=== PATIENT | female | born 1990 | race Caucasian/White ===

== ENCOUNTER 2017-11-07 16:43 | Emergency (ER) | payer OTHER, SELFPAY ==
[2017-11-07 16:45] VITALS: BP 131/90; PULSE 76; RESP 20; TEMP 36.5; O2SAT 99; BMI 24.4
--- NOTE | 2017-11-07 16:56 | ED_ITS ---
HPI - Extremity Injury (Upper) General Chief Complaint: Extremity Injury, Upper Stated Complaint: MIDDLE RIGHT FINGER INJURY Time Seen by Provider: 11/07/17 16:51 History of Present Illness HPI narrative: 27F no pmhx at work injured R 3rd digit in shelf, tweaking the end of it. Has full ROM, but feels a clicking and pain when moving. No numbness. Related Data Home Medications Medication Instructions Recorded Confirmed Supplements And Vitamins--Multi 1 ea PO DIRECTED 11/07/17 11/07/17 Allergies Allergy/AdvReac Type Severity Reaction Status Date / Time No Known Drug Allergies Allergy Verified 11/07/17 16:48 Review of Systems Constitutional Denies chills, Denies fever(s), Denies lethargy and Denies weakness Cardiovascular Denies chest pain, Denies irregular heart rhythm, Denies lightheadedness, Denies palpitations, Denies dyspnea, Denies dyspnea on exertion and Denies orthopnea Respiratory Denies cough, Denies dyspnea, Denies dyspnea on exertion and Denies wheezing Genitourinary Denies hematuria, Denies flank pain, Denies urinary incontinence and Denies urinary urgency Musculoskeletal Reports as per HPI Integumentary/Breasts Denies pruritus, Denies erythema, Denies rash and Denies wounds Neurologic Denies weakness Endocrine Denies palpitations Allergic/Immunologic Denies wheezing PFSH Surgical History Status post rhinoplasty Social History Smoking Status: Never smoker Exam Initial Vital Signs Initial Vital Signs: Vital Signs Temperature 97.7 F 11/07/17 16:45 Pulse Rate 76 11/07/17 16:45 Respiratory Rate 20 11/07/17 16:45 Blood Pressure 131/90 H 11/07/17 16:45 Pulse Oximetry 99 11/07/17 16:45 Const General: cooperative and well developed Nutritional Appearance: well nourished Orientation: alert, awake, oriented x3 and not confused Chest Chest: normal inspection of the chest Resp Effort & Inspection: normal respiratory effort, able to speak in complete sentences, no respiratory distress and no use of accessory muscles Auscultation: clear to auscultation bilaterally, no rales, no rhonchi and no wheezes Extrem General: other (Very minor swelling to DIP of 3rd R hand digit. Minor tenderness. No crepitus felt. Full ROM, normal sensation. ) Course Orders Ordered: ED Orders 05/25/18 16:54 XR hand RT 2V Stat Discontinued Medications Ibuprofen (Advil) 600 mg PO NOW ONE Stop: 11/07/17 17:00 Vital Signs - 8 hr 11/07/17 16:45 Temperature 97.7 F Pulse Rate 76 Respiratory Rate 20 Blood Pressure 131/90 H Pulse Oximetry 99 MDM - Extremity Injury (Upper) Imaging Data Hand XR: Radiologist's impression: Patient: Darby English MMR#: [id number] : 1990Acct:[id number] Age/Sex: 27 / FDate of Service: 11/07/17 Loc: ED Accession Number: [id number] Procedure: XR hand RT 2V Ordering Provider: Oswaldo Negrete M.D. PROCEDURE: XR HAND RT 2V INDICATIONS: hand injury TECHNIQUE: 2 views of the hand(s) acquired. COMPARISON: None. FINDINGS: Bones: No fractures or dislocations. Carpal bones are normally aligned. No suspicious bony lesions. Soft tissues: No suspicious soft tissue calcifications. IMPRESSION: No trauma found. Dictated by: Collins Huddleston M.D. on 11/07/2017 at 17:15 Approved by: Collins Huddleston M.D. on 11/07/2017 at 17:16 [facility] Narrative Medical decision making narrative: XR negative for fracture or dislocation. Finger moustapha taped. Stable for discharge. Discharge Plan Departure Patient Disposition: Home, Self-Care Clinical Impression: Finger sprain Instructions: DI for Finger Sprain Activity Restrictions/Additional Instructions: May resume normal activities as tolerated. Prescriptions: No Action Supplements And Vitamins--Multi 1 ea PO DIRECTED RF: 0 Referrals: Aldo Sepulveda MD [Primary Care Provider] - Stand Alone Forms: Work/School Restrictions
== END 2017-11-07 17:42 | disposition home or self-care (01) ==
PROVIDERS: Emergency Provider Student in an Organized Health Care Education/Training Program; PCP Family Medicine
DX: S63.612A Unspecified sprain of right middle finger, initial encounter (principal); X58.XXXA Exposure to other specified factors, initial encounter; Y99.0 Civilian activity done for income or pay
CPT/HCPCS: 73120; 99282; 99283

== ENCOUNTER → 2019-08-02 15:02 | Outpatient (CLI) | payer OTHER, MEDICAID, SELFPAY ==
[2019-08-02 17:35] LABS: Add Manual Diff / Slide Review NO; Basophils Absolute Auto 0 /uL (0-100); Basophils Percent Auto 0.5 % (0-2); Eosinophils Absolute Auto 100 /uL (0-450); Eosinophils Percent Auto 1.6 % (2-4); Hematocrit 40.9 % (36-46); Hemoglobin 13.7 g/dL (12.0-16.0); Lymphocytes Absolute Auto 2200 /uL (1100-4500); Lymphocytes Percent Auto 36.4 % (25-40); Mean Corpuscular HGB Conc 33.6 % (30-36); Mean Corpuscular Hemoglobin 30.6 PG (26-34); Mean Corpuscular Volume 91.1 fL (80-100); Monocytes Absolute Auto 300 /uL (0-900); Monocytes Percent Auto 5.7 % (3-14); Neutrophils Absolute Auto 3300 /uL (1500-7000); Neutrophils Percent Auto 55.8 % (50-75); Platelet Count 229 X10^3/uL (150-400); Red Blood Cell Count 4.49 X10^6/uL (4.0-5.2); Red Cell Distribution Width 12.3 % (11.6-14.8); White Blood Cell Count 5.9 X10^3/uL (4.5-11.0)
[2019-08-02 18:11] LABS: Alanine Aminotransferase 21 IU/L (<35); Albumin 4.8 g/dL (3.5-5.0); Albumin Globulin Ratio 1.4 (1.0-2.8); Alkaline Phosphatase 136 U/L (38-126); Aspartate Aminotransferase 32 IU/L (14-36); BUN Creatinine Ratio 16.7 (6-22); Bilirubin Total 0.3 mg/dL (0.2-1.3); Blood Urea Nitrogen 10 mg/dL (7-17); Calcium 9.5 mg/dL (8.4-10.2); Carbon Dioxide 28 mmol/L (22-32); Chloride 102 mmol/L (98-107); Cholesterol 167 mg/dL (140-199); Estimated Glomerular Filt Rate > 60.0 mL/min (>60); Globulin 3.4 g/dL (1.7-4.1); Glucose 81 mg/dL (70-100); HDL Cholesterol 57 mg/dL (40-60); HEMOLYSIS < 15 (0-50); LDL Cholesterol Calculated 81 mg/dL (<100); Potassium 4.5 mmol/L (3.4-5.1); Sodium 140 mmol/L (137-145); Total Protein 8.2 g/dL (6.3-8.2); Triglycerides 145 mg/dL (35-150)
[2019-08-02 18:45] LABS: Thyroid Stimulating Hormone 1.78 uIU/mL (0.47-4.68)
== END ==
PROVIDERS: PCP Family Medicine; Referring Provider Family Medicine; Visit Provider Family Medicine
DX: Z00.00 Encounter for general adult medical examination without abnormal findings (principal)
CPT/HCPCS: 36415; 80053; 80061; 83036; 84443; 85025

== ENCOUNTER → 2020-03-02 08:23 | Outpatient (CLI) | payer OTHER, MEDICAID, SELFPAY ==
[2020-03-03 20:01] LABS: COVID19 Sendout Not Detected (Not Detect)
== END ==
PROVIDERS: PCP Family Medicine; Visit Provider Physician Assistant
DX: Z11.59 Encounter for screening for other viral diseases (principal)
CPT/HCPCS: 87635

== ENCOUNTER → 2020-05-08 13:13 | Outpatient (CLI) | payer OTHER, MEDICAID, SELFPAY ==
[2020-05-08 14:30] LABS: COVID19 -Nasal RAPID Negative (Negative)
== END ==
PROVIDERS: PCP Family Medicine; Visit Provider Physician Assistant
DX: Z11.59 Encounter for screening for other viral diseases (principal)
CPT/HCPCS: 87635

== ENCOUNTER → 2022-02-13 08:15 | Outpatient (CLI) | payer OTHER, MEDICAID, SELFPAY ==
--- NOTE | 2022-02-13 | DI.RAD.S_ITS ---
PROCEDURE: XR HAND RT MIN 3V INDICATIONS: pain at 3rd PIP TECHNIQUE: 3 views of the hand(s) acquired. COMPARISON: [facility], CR, XR HAND RT 2V, 11/07/2017, 17:07. FINDINGS: Bones: No fractures or dislocations. Carpal bones are normally aligned. No suspicious bony lesions. Soft tissues: No suspicious soft tissue calcifications. IMPRESSION: No visualized acute fracture or dislocation. However, if clinical concern and/or pain persist, short interval imaging followup in 7-10 days is recommended, as occult injury cannot be definitively excluded. Dictated by: Lizbeth Millan M.D. on 02/13/2022 at 17:17 Approved by: Lizbeth Millan M.D. on 02/13/2022 at 17:18
--- NOTE | 2022-02-13 | DI.US.S_ITS ---
PROCEDURE: US PELVIC COMPLETE INDICATIONS: Right lower quadrant pain TECHNIQUE: Real-time scanning was performed of the pelvic organs, with image documentation. Additional endovaginal scanning was necessary due to incomplete visualization of the adnexal and endometrial structures by transabdominal scanning. COMPARISON: [facility], , PELVIC COMPLETE, 08/25/2017, 18:00. FINDINGS: Uterus: Uterus is anteverted and normal in size at 7.6 x 4 x 3.4 cm. The myometrium is homogeneous. The endometrium measures 3 mm combined thickness. Incidental note is made of nabothian cysts. Ovaries: The right ovary measures 3 x 2 x 2 cm. The left ovary measures 2.6 x 1.7 x 1.3 cm. The ovaries have a normal sonographic appearance. Less than 12 follicles can be seen involving each ovary. No adnexal masses are seen. Other: No pathologic free abdominal or pelvic fluid. IMPRESSION: No imaging explanation is found for this patient's presenting symptoms. We strive to produce accurate, complete, and clear reports of imaging services. To assist us in improving patient care, this report was composed using standard report templates and voice recognition software. Therefore, it may contain abnormal punctuation, insertions and/or omissions. Occasional wrong-word or sound-alike substitutions may occur. Though we review the report and make efforts to correct it, we do recommend that the report be read carefully in proper context to recognize any text inaccuracies. Dictated by: Lior Stephenson M.D. on 02/13/2022 at 12:34 Approved by: Lior Stephenson M.D. on 02/13/2022 at 12:35
== END ==
PROVIDERS: PCP Family Medicine; Referring Provider Physician Assistant; Visit Provider Physician Assistant
DX: N88.8 Other specified noninflammatory disorders of cervix uteri (principal); R10.31 Right lower quadrant pain; M79.644 Pain in right finger(s)
CPT/HCPCS: 73130; 76830; 76856

== ENCOUNTER → 2022-02-25 11:42 | Outpatient (CLI) | payer OTHER, SELFPAY ==
--- NOTE | 2022-02-25 11:43 | DI.US.S_ITS ---
PROCEDURE: US ABDOMEN LIMITED INDICATIONS: RUQ RLQ and epigastric pain TECHNIQUE: Real-time focused scanning was performed of the abdomen, with image documentation. COMPARISON: None. FINDINGS: The liver demonstrates mildly size. The liver demonstrates generalized slightly increased echogenicity. This decreases ultrasound sensitivity for detection of hepatic masses. No findings of gallstones or sludge are seen. The gallbladder wall is not thickened, measuring 3 mm or less. No specific pericholecystic fluid is seen. The sonographic Finley sign is negative. There is no biliary dilatation, the common bile duct measures 6-7 mm. No significant pancreatic abnormality is seen on these images. The right kidney demonstrates mild pelviectasis and hydroureter, which resolves postvoid. There is potential visualization of the distal right ureter postvoid. IMPRESSION: The gallbladder demonstrates a normal sonographic appearance. No biliary dilatation is seen. Right kidney pelviectasis and hydroureter can be seen, which resolves postvoid. Potential visualization of the distal right ureter on postvoid imaging. Please consider reflux. Mildly enlarged, fatty liver. Dictated by: Lior Stephenson M.D. on 02/25/2022 at 11:26 Approved by: Lior Stephenson M.D. on 02/25/2022 at 11:28
== END ==
PROVIDERS: PCP Family Medicine; Referring Provider Nurse Practitioner; Visit Provider Nurse Practitioner
DX: R10.11 Right upper quadrant pain (principal); R10.31 Right lower quadrant pain; R10.13 Epigastric pain; K76.0 Fatty (change of) liver, not elsewhere classified; R16.0 Hepatomegaly, not elsewhere classified
CPT/HCPCS: 76705

== ENCOUNTER → 2022-04-10 09:15 | Outpatient (CLI) | payer OTHER, SELFPAY ==
[2022-04-10 10:13] LABS: COVID19 -Nasal RAPID Negative (Negative)
== END ==
PROVIDERS: PCP Nurse Practitioner; Visit Provider Surgery
DX: Z20.822 Contact with and (suspected) exposure to COVID-19 (principal); Z01.812 Encounter for preprocedural laboratory examination
CPT/HCPCS: 87635; C9803

== ENCOUNTER 2022-04-11 10:29 | Day surgery (SDC) | payer OTHER, SELFPAY ==
[2022-04-11] VITALS (7 sets, daily range): BP systolic 105–115; BP diastolic 62–78; PULSE 66–78; RESP 16; TEMP 36.2–36.8; O2SAT 98–100; BMI 25.0
--- NOTE | 2022-04-11 | PATH_ITS ---
[facility] Accession Number: [id number] . 01 Material submitted: . colon - DESCENDING COLON POLYP . 01 Diagnosis: Descending Colon, Polyp, Biopsy: Tubular adenoma. MRV 04/16/2022 1246 Local . 01 Electronically signed: . Carmen Madsen MD, Pathologist NPI- [id number] . 01 Gross description: . DESCENDING COLON POLYP: Received in formalin is 1 fragment(s) of sahni, soft tissue measuring 0.3 x 0.2 x 0.2 cm submitted entirely in 1 cassette(s) /NICOLE 04/15/2022 1902 Local . 01 Pathologist provided ICD-10: D12.4 . 01 CPT . 773119 Specimen Comment: A courtesy copy of this report has been sent to [phone] Performed at: 01 [facility] [address] [place] [address] [id number] MD Blake Peters MD Phone: [phone]
[2022-04-11] MEDS: LACTATED RINGERS 1,000 ML 42 ML IV (11:13)
--- NOTE | 2022-04-11 11:57 | PM.HP.1 ---
History of Present Illness History of Present Illness Date Patient Seen: 04/11/22 Time Patient Seen: 11:57 Chief complaint: DX COLONOSCOPY W/POSS BX Narrative: Mercy is here for her colonoscopy. Please refer to the office note from February for details. She has not used the topical diltiazem ointment yet. Symptoms have improved somewhat which she attributes to dietary changes. Patient History Medical History Chicken pox (~1998) Dyslexia Fatty liver Hydroureter, right Internal hemorrhoids URI (upper respiratory infection) Vertigo (~2017) Well adult Surgical History Status post rhinoplasty Family & Social History Social History: household members significant other Tobacco & Substance use: Smoking Status Never smoker alcohol intake never alcohol intake frequency a few times a week Substance Use Type does not use Meds Home Medications and Allergies Allergies Allergy/AdvReac Type Severity Reaction Status Date / Time No Known Drug Allergies Allergy Verified 04/11/22 10:54 Exam Vital Signs (past 8 hours): - 04/11/22 10:55 Temperature 98 F Pulse Rate 70 Respiratory Rate 16 Blood Pressure 115/78 Pulse Oximetry 100 Oxygen Delivery Method Room Air Oxygen Delivery Method Room Air Const General: healthy appearing Assessment & Plan Assessment and plan (1) Rectal bleeding: Status: Acute Plan We reviewed the risks and benefits of colonoscopy and she would like to proceed Time Spent With Patient Critical Care time: I spent a total of [] minutes of critical care time on this patient's care today; this time is exclusive of procedural time.
[2022-04-11] MEDS: fentaNYL 100 MCG/2 ML INJ 275 MCG IV (12:34)
[2022-04-11] MEDS: MIDAZOLAM 5 MG/5 ML VIAL 13 MG IV (12:52)
--- NOTE | 2022-04-11 12:53 | PM.OP.COLON ---
Operative Date/Time/Diagnoses Date of procedure: 04/11/22 Time of procedure: 12:53 Pre-op diagnosis: Rectal bleeding Post-op diagnosis: same Procedure & Clinicians Study performed: Colonoscopy Same procedure as scheduled: Yes Surgeon: Aldo Willis Procedure Notes Procedure in detail: Surgeon: Aldo Willis MD Procedure: The patient was brought to the endoscopy suite, placed in left lateral decubitus position. The patient was connected to monitoring devices. A time-out was performed. Sedation was administered. Once the patient was adequately sedated, a digital rectal exam was performed and was normal. The scope was then inserted and advanced to the cecum where the appendiceal orifice was identified and photographed. Is very difficult to reach the cecum requiring multiple position changes and abdominal pressure as well as the scope stiffener. The scope was then slowly withdrawn over greater than 6 minutes. The mucosa was thoroughly inspected. There was a small 3 mm polyp in the ascending colon removed with the Jumbo forceps. The scope was retroflexed in the rectum. No other abnormalities were noted. The scope was straightened and removed. The patient was awakened and brought to recovery. Versed: 13 mg Fentanyl: 275 mcg EBL: 5 mL Findings: 3 mm polyp in the ascending colon Scope withdrawal time: 11 Sedation minutes: 47 Post-procedure Recommendations: Will call with biopsy results Disposition: PACU
== END 2022-04-11 13:39 | disposition home or self-care (01) ==
PROVIDERS: PCP Nurse Practitioner; Referring Provider Surgery; Visit Provider Surgery
PROC: 0DJD8ZZ Inspection of Lower Intestinal Tract, Via Natural or Artificial Opening Endoscopic (ICD-10-PCS; CPT 45378; principal; 2022-04-11 11:30)
DX: D12.2 Benign neoplasm of ascending colon (principal)
CPT/HCPCS: 45380; 99152; 99153; J2250; J3010

== ENCOUNTER 2022-05-24 16:36 | Observation (INO) | payer OTHER, SELFPAY ==
[2022-05-24 16:45] VITALS: BP 139/90; PULSE 65; RESP 14; TEMP 36.6; O2SAT 99; BMI 26.4
--- NOTE | 2022-05-24 17:13 | DI.US.S_ITS ---
PROCEDURE: US PELVIC COMPLETE INDICATIONS: RIGHT ADNEXAL PAIN TECHNIQUE: Real-time scanning was performed of the pelvic organs, with image documentation. Additional endovaginal scanning was necessary due to incomplete visualization of the adnexal and endometrial structures by transabdominal scanning. COMPARISON: [facility], US, US PELVIC COMPLETE, 02/13/2022, 8:33. FINDINGS: Uterus: Uterus is anteverted and normal in size at 8.3 x 5.0 x 3.9 cm. The myometrium is homogeneous. The endometrium measures 12.6 mm combined thickness. There is mobile complex fluid within the endometrial cavity, suspicious for clot. Mild anechoic fluid within the endocervical canal. Ovaries: The right ovary measures 3.7 x 3.5 x 1.8 cm, with a calculated ovarian volume of 12.1 cc. The left ovary measures 3.2 x 2.1 x 1.9 cm, with a calculated ovarian volume of 6.6 cc. The ovaries have a normal sonographic appearance. Less than 12 follicles can be seen in each ovary. No adnexal masses are seen. There is normal arterial and venous flow on Doppler ultrasound to both ovaries. Other: No pathologic free abdominal or pelvic fluid. There is trace right renal pelviectasis and a mildly prominent proximal right ureter measuring 5 mm in diameter. IMPRESSION: 1. Mobile complex fluid within the endometrial cavity suspicious for clot. A small amount of anechoic fluid is also seen in the endocervical canal. 2. Normal ovaries. 3. Mild right renal pelviectasis and ureterectasis. We strive to produce accurate, complete, and clear reports of imaging services. To assist us in improving patient care, this report was composed using standard report templates and voice recognition software. Therefore, it may contain abnormal punctuation, insertions and/or omissions. Occasional wrong-word or sound-alike substitutions may occur. Though we review the report and make efforts to correct it, we do recommend that the report be read carefully in proper context to recognize any text inaccuracies. Dictated by: Demetria Gallo M.D. on 05/24/2022 at 18:29 Approved by: Demetria Gallo M.D. on 05/24/2022 at 18:35
--- NOTE | 2022-05-24 17:14 | ED_ITS ---
HPI - General Adult <DO Dewey Lara Last Filed: 05/25/22 07:25> General Chief complaint: Abdominal Pain Stated complaint: ABD pain Time Seen by Provider: 05/24/22 16:54 Source: patient Mode of arrival: Ambulatory History of Present Illness HPI narrative: 31-year-old female who is here for evaluation of right lower quadrant/right adnexa pain. She states the symptoms were fairly sudden onset at about 1500 t his afternoon. It has been persistent since then. Has had a bowel movement since then it did not change the pain. No nausea or vomiting. No urinary symptoms. She is nursing home through menstrual cycle. Is not on control. No vaginal bleeding. No fevers. No prior abdominal surgeries. Has not tried anything for the symptoms prior to arrival. Related Data Home Medications Medication Instructions Recorded Confirmed No Known Home Medications 04/22/22 05/24/22 Allergies Allergy/AdvReac Type Severity Reaction Status Date / Time No Known Drug Allergies Allergy Verified 05/24/22 17:03 Review of Systems <DO Dewey Lara Last Filed: 05/25/22 07:25> Constitutional Constitutional: Reports system reviewed and no additional complaints, except as documented Respiratory Respiratory: Reports system reviewed and no additional complaints, except as documented Gastrointestinal Gastrointestinal: Reports system reviewed and no additional complaints, except as documented Genitourinary Genitourinary: Reports system reviewed and no additional complaints, except as documented Integumentary/Breasts Skin/Breast: Reports system reviewed and no additional complaints, except as documented Hematologic/Lymphatic On Anticoagulants: No Patient History <DO Dewey Lara Last Filed: 05/25/22 07:25> Medical History Chicken pox (~1998) Dyslexia Fatty liver Hydroureter, right Internal hemorrhoids URI (upper respiratory infection) Vertigo (~2018) Well adult Surgical History Status post rhinoplasty Social History household members: significant other Smoking Status: Former smoker alcohol intake: current Smoking Status: Never smoker alcohol intake frequency: holidays/special occasions only Substance Use Type: does not use Exam <DO Dewey Lara Last Filed: 05/25/22 07:25> Initial Vital Signs Initial Vital Signs: Vital Signs Temperature 97.8 F 05/24/22 16:45 Pulse Rate 65 05/24/22 16:45 Respiratory Rate 14 05/24/22 16:45 Blood Pressure 139/90 05/24/22 16:45 Pulse Oximetry 99 05/24/22 16:45 Oxygen Delivery Method 05/24/22 16:45 Const General: cooperative, comfortable and No ill appearing HENMT Head: normal to inspection and normocephalic Resp Effort & Inspection: normal respiratory effort Cardio Rate: regular rate GI Inspection: normal to inspection and non-distended Palpation: soft and tender (Right lower quadrant/right adnexa) Back/Spine/Pelvis Back: No CVA tenderness Skin General: no rashes or lesions noted Neuro General: patient alert, patient awake, patient oriented x3 and moves all extremities Extrem General: normal to inspection and capillary refill normal Psych Appearance: grossly normal <Kevin Winston DO - Last Filed: 05/25/22 06:41> Initial Vital Signs Initial Vital Signs: Vital Signs Temperature 97.8 F 05/24/22 16:45 Pulse Rate 65 05/24/22 16:45 Respiratory Rate 14 05/24/22 16:45 Blood Pressure 139/90 05/24/22 16:45 Pulse Oximetry 99 05/24/22 16:45 Oxygen Delivery Method 05/24/22 16:45 Course <Andrae Nugent, DO - Last Filed: 05/25/22 07:25> Orders Ordered: Acetaminophen (Acetaminophen 325 Mg Tablet) 975 mg PO Q6H [facility] Last Admin: 05/25/22 01:53 Dose: Not Given Documented By: Admin: 05/24/22 22:42 Dose: Not Given Documented By: CRISTAL Enoxaparin Sodium (Enoxaparin 40 Mg/0.4 Ml Syringe) 40 mg SUBCUT DAILY [facility] Hydromorphone HCl (Hydromorphone 0.5 Mg Inj) 0.5 mg IV Q4H PRN PRN Reason: Pain, Moderate (4-6) Last Admin: 05/25/22 01:41 Dose: 0.5 mg Documented By: CRISTAL Hydromorphone HCl (Hydromorphone 1 Mg Inj) 1 mg IV Q4H PRN PRN Reason: Pain, Severe (7-10) Sodium Chloride (Normal Saline 0.45%) 1,000 mls @ 100 mls/hr IV CONT KURT Last Admin: 05/24/22 22:27 Dose: 100 mls/hr Documented By: CRISTAL Piperacillin Sod/Tazobactam (Sod 3.375 gm/ Sodium Chloride) 100 mls @ 25 mls/hr IV Q8H [facility] Last Admin: 05/25/22 05:23 Dose: 25 mls/hr Documented By: Admin: 05/24/22 22:26 Dose: Not Given Documented By: CRISTAL Ketorolac Tromethamine (Ketorolac 30 Mg/Ml Vial) 30 mg IV Q6H [facility] Stop: 05/29/22 20:45 Last Admin: 05/25/22 01:52 Dose: 30 mg Documented By: Admin: 05/24/22 22:30 Dose: Not Given Documented By: CRISTAL Naloxone HCl (Naloxone 0.4 Mg/Ml Vial) 0.2 mg IV Q2MIN PRN PRN Reason: Opiate Reversal Ondansetron HCl (Ondansetron 4 Mg/2 Ml Inj) 4 mg IV Q8HR PRN PRN Reason: Nausea And Vomiting Discontinued Medications Hydromorphone HCl (Hydromorphone 0.5 Mg Inj) 0.5 mg IV NOW ONE Stop: 05/24/22 19:51 Last Admin: 05/24/22 21:14 Dose: 0.5 mg Documented By: JARED Lactated Ringer's (Lactated Ringers) 1,000 mls @ 1,000 mls/hr IV BOLUS ONE Stop: 05/24/22 20:49 Last Admin: 05/24/22 20:25 Dose: 1,000 mls/hr Documented By: JARED Piperacillin Sod/Tazobactam (Sod 4.5 gm/ Sodium Chloride) 100 mls @ 200 mls/hr IV NOW ONE Stop: 05/24/22 19:51 Last Infusion: 05/24/22 21:00 Dose: 0 mls/hr Documented By: Admin: 05/24/22 20:26 Dose: 200 mls/hr Documented By: JARED Ketorolac Tromethamine (Ketorolac 30 Mg/Ml Vial) 30 mg IV NOW ONE Stop: 05/24/22 17:13 Last Admin: 05/24/22 18:20 Dose: 30 mg Documented By: BRIAN Ondansetron HCl (Ondansetron 4 Mg/2 Ml Inj) 4 mg IV NOW ONE Stop: 05/24/22 19:51 Last Admin: 05/24/22 21:14 Dose: 4 mg Documented By: JARED Vital Signs Vital signs: Vital Signs - 8 hr 05/24/22 16:45 Temperature 97.8 F Pulse Rate 65 Respiratory Rate 14 Blood Pressure 139/90 Pulse Oximetry 99 Oxygen Delivery Method Room Air <Kevin Winston, DO - Last Filed: 05/25/22 06:41> Orders Ordered: Acetaminophen (Acetaminophen 325 Mg Tablet) 975 mg PO Q6H [facility] Last Admin: 05/25/22 01:53 Dose: Not Given Documented By: Admin: 05/24/22 22:42 Dose: Not Given Documented By: CRISTAL Enoxaparin Sodium (Enoxaparin 40 Mg/0.4 Ml Syringe) 40 mg SUBCUT DAILY [facility] Hydromorphone HCl (Hydromorphone 0.5 Mg Inj) 0.5 mg IV Q4H PRN PRN Reason: Pain, Moderate (4-6) Last Admin: 05/25/22 01:41 Dose: 0.5 mg Documented By: CRISTAL Hydromorphone HCl (Hydromorphone 1 Mg Inj) 1 mg IV Q4H PRN PRN Reason: Pain, Severe (7-10) Sodium Chloride (Normal Saline 0.45%) 1,000 mls @ 100 mls/hr IV CONT [facility] Last Admin: 05/24/22 22:27 Dose: 100 mls/hr Documented By: CRISTAL Piperacillin Sod/Tazobactam (Sod 3.375 gm/ Sodium Chloride) 100 mls @ 25 mls/hr IV Q8H [facility] Last Admin: 05/25/22 05:23 Dose: 25 mls/hr Documented By: Admin: 05/24/22 22:26 Dose: Not Given Documented By: CRISTAL Ketorolac Tromethamine (Ketorolac 30 Mg/Ml Vial) 30 mg IV Q6H [facility] Stop: 05/29/22 20:45 Last Admin: 05/25/22 01:52 Dose: 30 mg Documented By: Admin: 05/24/22 22:30 Dose: Not Given Documented By: CRISTAL Naloxone HCl (Naloxone 0.4 Mg/Ml Vial) 0.2 mg IV Q2MIN PRN PRN Reason: Opiate Reversal Ondansetron HCl (Ondansetron 4 Mg/2 Ml Inj) 4 mg IV Q8HR PRN PRN Reason: Nausea And Vomiting Discontinued Medications Hydromorphone HCl (Hydromorphone 0.5 Mg Inj) 0.5 mg IV NOW ONE Stop: 05/24/22 19:51 Last Admin: 05/24/22 21:14 Dose: 0.5 mg Documented By: JARED Lactated Ringer's (Lactated Ringers) 1,000 mls @ 1,000 mls/hr IV BOLUS ONE Stop: 05/24/22 20:49 Last Admin: 05/24/22 20:25 Dose: 1,000 mls/hr Documented By: JARED Piperacillin Sod/Tazobactam (Sod 4.5 gm/ Sodium Chloride) 100 mls @ 200 mls/hr IV NOW ONE Stop: 05/24/22 19:51 Last Infusion: 05/24/22 21:00 Dose: 0 mls/hr Documented By: Admin: 05/24/22 20:26 Dose: 200 mls/hr Documented By: JARED Ketorolac Tromethamine (Ketorolac 30 Mg/Ml Vial) 30 mg IV NOW ONE Stop: 05/24/22 17:13 Last Admin: 05/24/22 18:20 Dose: 30 mg Documented By: BRIAN Ondansetron HCl (Ondansetron 4 Mg/2 Ml Inj) 4 mg IV NOW ONE Stop: 05/24/22 19:51 Last Admin: 05/24/22 21:14 Dose: 4 mg Documented By: JARED Consultations Consultation #1: Discussed with on-call general surgeon (Mishel) after careful review of patient's history and physical exam as well as labs and imaging we sure the opinion that the patient's most appropriate lead admitted to the hospital, kept NPO started on antibiotics with likely surgical intervention tomorrow Vital Signs Vital signs: Vital Signs - 8 hr 05/24/22 16:45 Temperature 97.8 F Pulse Rate 65 Respiratory Rate 14 Blood Pressure 139/90 Pulse Oximetry 99 Oxygen Delivery Method Room Air Medical Decision Making <Andrae Nugent DO - Last Filed: 05/25/22 07:25> Lab Data Result diagrams: 05/24/22 18:16 05/24/22 18:16 Labs: Lab Results 05/24/22 05/24/22 05/24/22 Range/Units 18:16 18:16 20:22 WBC 6.8 (4.5-11.0) X10^3/uL RBC 4.65 (4.0-5.2) X10^6/uL Hgb 13.6 (12.0-16.0) g/dL Hct 40.3 (36-46) % MCV 86.8 (80-100) fL MCH 29.3 (26-34) PG MCHC 33.8 (30-36) % RDW 13.3 (11.6-14.8) % Plt Count 249 (150-400) X10^3/uL Neut % (Auto) 44.3 L (50-75) % Lymph % (Auto) 45.8 H (25-40) % [place] % (Auto) 6.9 (3-14) % Eos % (Auto) 2.0 (2-4) % Baso % (Auto) 1.0 (0-2) % Neut # (Auto) 3000 (4454-5291) /uL Lymph # (Auto) 3100 (2428-5036) /uL [place] # (Auto) 500 (0-900) /uL Eos # (Auto) 100 (0-450) /uL Baso # (Auto) 100 (0-100) /uL Sodium 138 (137-145) mmol/L Potassium 3.9 (3.4-5.1) mmol/L Chloride 100 (98-107) mmol/L Carbon Dioxide 27 (22-32) mmol/L BUN 12 (7-17) mg/dL Creatinine 0.58 (0.52-1.04) mg/dL Estimated GFR > 60 (>60) mL/min BUN/Creatinine Ratio 20.7 (6-22) Glucose 80 (70-100) mg/dL Calcium 9.0 (8.4-10.2) mg/dL Total Bilirubin 0.3 (0.2-1.3) mg/dL AST 32 (14-36) IU/L ALT 24 (<35) IU/L Alkaline Phosphatase 149 H (38-126) U/L Total Protein 8.0 (6.3-8.2) g/dL Albumin 4.6 (3.5-5.0) g/dL Globulin 3.4 (1.7-4.1) g/dL Albumin/Globulin Ratio 1.4 (1.0-2.8) Lipase 225 (23-300) U/L SARS-CoV-2 (PCR) Negative (Negative) Point of Care Testing Test Results Negative Urine Dip Bedside Urine Glucose Negative Bedside Urine Bilirubin - Negative Bedside Urine Ketone - Negative Urine Specific [place] 1.005 Bedside Urine Occult Blood - Negative Bedside Urine pH 7 Bedside Urine Protein - Negative Bedside Urine Urobilinogen - Negative Bedside Urine Nitrite - Negative Bedside Urine Leukocytes - Negative Esterase Point of care testing: Point of Care Testing Test Results Negative Urine Dip Bedside Urine Glucose Negative Bedside Urine Bilirubin - Negative Bedside Urine Ketone - Negative Urine Specific [place] 1.005 Bedside Urine Occult Blood - Negative Bedside Urine pH 7 Bedside Urine Protein - Negative Bedside Urine Urobilinogen - Negative Bedside Urine Nitrite - Negative Bedside Urine Leukocytes - Negative Esterase MDM Narrative Medical decision making narrative: Patient does seem to have more right adnexa pain rather than right lower quadrant abdominal pain however appendicitis is a consideration. Given the sudden onset of the pain in the fact she is nursing home through her menstrual cycle we will start with a ultrasound. Potentially will need a CT scan if the ultr asound is unremarkable. Care turned over to Dr. Winston at change of shift to follow-up and disposition. <Kevin Winston, - Last Filed: 05/25/22 06:41> Lab Data Labs: Lab Results 05/24/22 05/24/22 05/24/22 Range/Units 18:16 18:16 20:22 WBC 6.8 (4.5-11.0) X10^3/uL RBC 4.65 (4.0-5.2) X10^6/uL Hgb 13.6 (12.0-16.0) g/dL Hct 40.3 (36-46) % MCV 86.8 (80-100) fL MCH 29.3 (26-34) PG MCHC 33.8 (30-36) % RDW 13.3 (11.6-14.8) % Plt Count 249 (150-400) X10^3/uL Neut % (Auto) 44.3 L (50-75) % Lymph % (Auto) 45.8 H (25-40) % [place] % (Auto) 6.9 (3-14) % Eos % (Auto) 2.0 (2-4) % Baso % (Auto) 1.0 (0-2) % Neut # (Auto) 3000 (3606-8150) /uL Lymph # (Auto) 3100 (4903-5460) /uL [place] # (Auto) 500 (0-900) /uL Eos # (Auto) 100 (0-450) /uL Baso # (Auto) 100 (0-100) /uL Sodium 138 (137-145) mmol/L Potassium 3.9 (3.4-5.1) mmol/L Chloride 100 (98-107) mmol/L Carbon Dioxide 27 (22-32) mmol/L BUN 12 (7-17) mg/dL Creatinine 0.58 (0.52-1.04) mg/dL Estimated GFR > 60 (>60) mL/min BUN/Creatinine Ratio 20.7 (6-22) Glucose 80 (70-100) mg/dL Calcium 9.0 (8.4-10.2) mg/dL Total Bilirubin 0.3 (0.2-1.3) mg/dL AST 32 (14-36) IU/L ALT 24 (<35) IU/L Alkaline Phosphatase 149 H (38-126) U/L Total Protein 8.0 (6.3-8.2) g/dL Albumin 4.6 (3.5-5.0) g/dL Globulin 3.4 (1.7-4.1) g/dL Albumin/Globulin Ratio 1.4 (1.0-2.8) Lipase 225 (23-300) U/L SARS-CoV-2 (PCR) Negative (Negative) Point of Care Testing Test Results Negative Urine Dip Bedside Urine Glucose Negative Bedside Urine Bilirubin - Negative Bedside Urine Ketone - Negative Urine Specific [place] 1.005 Bedside Urine Occult Blood - Negative Bedside Urine pH 7 Bedside Urine Protein - Negative Bedside Urine Urobilinogen - Negative Bedside Urine Nitrite - Negative Bedside Urine Leukocytes - Negative Esterase Point of care testing: Point of Care Testing Test Results Negative Urine Dip Bedside Urine Glucose Negative Bedside Urine Bilirubin - Negative Bedside Urine Ketone - Negative Urine Specific [place] 1.005 Bedside Urine Occult Blood - Negative Bedside Urine pH 7 Bedside Urine Protein - Negative Bedside Urine Urobilinogen - Negative Bedside Urine Nitrite - Negative Bedside Urine Leukocytes - Negative Esterase MDM Narrative Medical decision making narrative: Patient does seem to have more right adnexa pain rather than right lower q uadrant abdominal pain however appendicitis is a consideration. Given the sudden onset of the pain in the fact she is nursing home through her menstrual cycle we will start with a ultrasound. Potentially will need a CT scan if the ultrasound is unremarkable. Care turned over to Dr. Winston at change of shift to follow-up and disposition. [1800] ([place]) Patient received in sign out from Dr. Ye]. I have reviewed the clinical course and performed an independent history and physical exam. No significant abnormalities on preliminary read of ultrasound. CT ordered. Patient has just received Toradol, will reassess shortly Discharge Plan Departure Patient Disposition: Admitted As Inpatient Clinical Impression: Appendicitis Admit Date/Time: 05/24/22 20:37 Admit Provider: Melvina Florentino
[2022-05-24] MEDS: KETOROLAC 30 MG/ML VIAL IV (18:20)
[2022-05-24 18:27] LABS: Add Manual Diff / Slide Review NO; Basophils Absolute Auto 100 /uL (0-100); Eosinophils Absolute Auto 100 /uL (0-450); Hematocrit 40.3 % (36-46); Hemoglobin 13.6 g/dL (12.0-16.0); Lymphocytes Absolute Auto 3100 /uL (1100-4500); Lymphocytes Percent Auto 45.8 % (25-40); Mean Corpuscular HGB Conc 33.8 % (30-36); Mean Corpuscular Hemoglobin 29.3 PG (26-34); Mean Corpuscular Volume 86.8 fL (80-100); Monocytes Absolute Auto 500 /uL (0-900); Monocytes Percent Auto 6.9 % (3-14); Neutrophils Absolute Auto 3000 /uL (1500-7000); Neutrophils Percent Auto 44.3 % (50-75); Platelet Count 249 X10^3/uL (150-400); Red Blood Cell Count 4.65 X10^6/uL (4.0-5.2); Red Cell Distribution Width 13.3 % (11.6-14.8); White Blood Cell Count 6.8 X10^3/uL (4.5-11.0)
--- NOTE | 2022-05-24 18:29 | DI.CT.S_ITS ---
PROCEDURE: CT ABDOMEN PELVIS W CON INDICATIONS: RLQ pain TECHNIQUE: After the administration of IV contrast, axial sections were acquired from the lung bases to the pubic symphysis. Coronal and sagittal reformats were performed. For radiation dose reduction, the following was used: automated exposure control, adjustment of mA and/or kV according to patient size. COMPARISON: [facility], , ABDOMEN LIMITED, 02/25/2022, 11:49. [facility], , US PELVIC COMPLETE, 05/24/2022, 17:39. FINDINGS: Image quality: Excellent. Lung bases: Unremarkable. Heart: No significant findings. ABDOMEN: Liver: Normal size. Mild hepatic steatosis. Gallbladder: Unremarkable. Biliary ducts: Unremarkable. Pancreas: Unremarkable. Spleen: Unremarkable. Adrenal Glands: Unremarkable. Kidneys and Ureters: Normal size and symmetric enhancement. No renal stones or hydronephrosis. Trace right renal pelviectasis. No hydroureter. Stomach and Bowel: Appendix is retrocecal (series 2, image 75) and appears mildly enlarged measuring 8 mm in diameter. There are appendicoliths. No significant periappendiceal stranding. There is a large amount of stool in colon. Peritoneum: No abnormal intraperitoneal fluid. No free air. Ventral Wall: No hernia. Abdominal Nodes: No retroperitoneal or mesenteric adenopathy by size criteria. Vessels: Aorta and inferior vena cava are normal in size. PELVIS: Pelvic Organs: Fluid within the uterine cavity. Ovaries are normal. No free for in cul-de-sac or adnexa. Bladder: Unremarkable. Pelvic Nodes: No enlarged lymph nodes. Miscellaneous: No inguinal hernias are seen. Bones: Unremarkable. IMPRESSION: 1. Appendix is mildly enlarged and contains appendicoliths. There is, however, no significant periappendiceal stranding. Recommend clinical correlation for early acute appendicitis. 2. A large amount of stool in colon. 3. No renal stones or hydronephrosis. Dictated by: Demetria Gallo M.D. on 05/24/2022 at 19:06 Approved by: Demetria Gallo M.D. on 05/24/2022 at 19:16
[2022-05-24 18:39] LABS: Alanine Aminotransferase 24 IU/L (<35); Albumin 4.6 g/dL (3.5-5.0); Albumin Globulin Ratio 1.4 (1.0-2.8); Alkaline Phosphatase 149 U/L (38-126); Aspartate Aminotransferase 32 IU/L (14-36); BUN Creatinine Ratio 20.7 (6-22); Bilirubin Total 0.3 mg/dL (0.2-1.3); Blood Urea Nitrogen 12 mg/dL (7-17); Carbon Dioxide 27 mmol/L (22-32); Chloride 100 mmol/L (98-107); Estimated Glomerular Filt Rate > 60 mL/min (>60); Globulin 3.4 g/dL (1.7-4.1); Glucose 80 mg/dL (70-100); HEMOLYSIS 18 (0-50); Lipase 225 U/L (23-300); Potassium 3.9 mmol/L (3.4-5.1); Sodium 138 mmol/L (137-145)
--- NOTE | 2022-05-24 19:25 | PC.NURSE ---
Report received - assumed care of pt at this time
--- NOTE | 2022-05-24 20:00 | PC.NURSE ---
Sitting quietly on the bed - awaiting further disposition - no needs voiced at this time
[2022-05-24] MEDS: LACTATED RINGERS 1,000 ML 1000 ML IV (20:25)
[2022-05-24] MEDS: PIPERACILLIN/TAZO 4.5 GM in SODIUM CHLORIDE 0.9% 100 ML IV (20:26)
--- NOTE | 2022-05-24 20:45 | PC.NURSE ---
Ambulatory to the bathroom with steady gait
[2022-05-24 20:58] LABS: COVID19 -Nasal RAPID Negative (Negative)
--- NOTE | 2022-05-24 21:00 | PC.NURSE ---
belongings bagged up and labelled - at bedside with pt - gowned and warm blankets given for comfort
[2022-05-24] MEDS: HYDROMORPHONE 0.5 MG INJ IV (21:14)
[2022-05-24] MEDS: ONDANSETRON 4 MG/2 ML INJ IV (21:14)
[2022-05-24 21:15] VITALS: BP 138/79; PULSE 67; RESP 16; O2SAT 97
[2022-05-24 21:43] VITALS: BMI 26.4
--- NOTE | 2022-05-24 21:50 | PC.NURSE ---
Report called to PANKAJ Granados - pt to be transferred to room 214
[2022-05-24 22:03] VITALS: BMI 26.4
[2022-05-24 22:10] VITALS: BP 120/78; PULSE 75; RESP 16; TEMP 36; O2SAT 97
[2022-05-24] MEDS: SODIUM CHLORIDE 0.45% 1,000 ML 100 ML IV (22:27)
[2022-05-24 22:57] VITALS: BMI 26.6
[2022-05-25] VITALS (18 sets, daily range): BP systolic 111–132; BP diastolic 71–89; PULSE 65–102; RESP 11–31; TEMP 35.9–36.6; O2SAT 95–100; BMI 26.6
--- NOTE | 2022-05-25 | PATH_ITS ---
[facility] Accession Number: [id number] No. of containers..01 Tissue . 01 Material submitted: . appendix - APPENDIX . 01 Diagnosis: Appendix, Appendectomy: Mildly inflamed appendix with reactive lymphoid hyperplasia. Negative for malignancy. MRV 05/29/2022 1423 Local . 01 Electronically signed: . Fariba Desouza MD, Pathologist NPI- [id number] . 01 Gross description: . The specimen is received in formalin labeled with the patient's name, , and appendix, and consists of a vermiform appendix measuring 5.3 x 0.7 cm with sahni intact serosa and grossly dilated vasculature. The mesoappendix extends out to 1.7 cm. The surgical margin is received closed with a purple suture, is inked blue, and serial sectioning reveals the lumen to be obstructed by brown hard structure consistent with fecalith measuring 2.4 cm in greatest dimension. The lumen ranges from 0.3 x 0.6 cm in diameter, and the goodson are sahni and average 0.2 cm thick. Certified [employer] In[employer] sections to include the surgical margin, one-half of the bisected distal tip, and cross-sections are submitted in cassette A1. ([id number]) /MRV 05/29/2022 0240 Local . 01 Pathologist provided ICD-10: K35.80 . 01 CPT . 455709 Specimen Comment: A courtesy copy of this report has been sent to [phone] Performed at: 01 [facility] [address] [place] [address] [address], [place], [place] [id number] MD Blake Peters MD Phone: [phone]
[2022-05-25] MEDS: HYDROMORPHONE 0.5 MG INJ IV ×3 (01:41→12:57)
[2022-05-25] MEDS: KETOROLAC 30 MG/ML VIAL IV ×4 (01:52→20:14)
[2022-05-25] MEDS: PIPERACILLIN/TAZO 3.375 GM in SODIUM CHLORIDE 0.9% 100 ML IV ×3 (05:23→21:04)
--- NOTE | 2022-05-25 10:08 | PC.NURSE ---
Day shift: Pt off unit for procedure at approx 1010.
--- NOTE | 2022-05-25 10:09 | PM.HP.1 ---
History of Present Illness History of Present Illness Date Patient Seen: 05/25/22 Time Patient Seen: 10:09 Chief complaint: ABD pain Narrative: Darby is a 31 year old woman who developed right lower quadrant abdominal pain yesterday. She had felt similar episodes of pain in the right lower quadrant over the past week and assumed she had an oviarian cyst. She came in to the ER last night and a CT showed an enlarged appendix with appendicoliths. There was not significant nilton-appendiceal inflammation and her WBCs were normal. She has a colonoscopy a few months ago due to rectal bleeding and generalized abdominal discomfort and bloating. The colonoscopy was normal except for one small polyp. She reports that her bloating has improved since eliminating bananas, cane sugar and dairy from her diet. Patient History Medical History Chicken pox (~1998) Dyslexia Fatty liver Hydroureter, right Internal hemorrhoids URI (upper respiratory infection) Vertigo (~2017) Well adult Surgical History Status post rhinoplasty Family & Social History Social History: household members significant other Prior Living Arrangements House Safety & Behavioral: Feels Safe in Current Yes Environment Been Physically Hurt or No Threatened By a Person Tobacco & Substance use: Smoking Status Former smoker alcohol intake current alcohol intake frequency holiday/special occasion Substance Use Type does not use Meds Home Medications and Allergies Home Medications Medication Instructions Recorded Confirmed Type No Known Home Medications 04/22/22 05/24/22 History Allergies Allergy/AdvReac Type Severity Reaction Status Date / Time No Known Drug Allergies Allergy Verified 05/24/22 17:03 Exam Vital Signs (past 8 hours): - 05/25/22 04:03 05/25/22 08:30 Temperature 96.7 F L 97.6 F Pulse Rate 75 68 Respiratory Rate 16 14 Blood Pressure 117/74 129/81 Pulse Oximetry 98 97 Oxygen Flow Rate 0 Oxygen Delivery Method Room Air Oxygen Flow Rate 0 Narrative Exam Narrative: Tender to palpation in the right lower quadrant without lyssa peritonitis. Objective Labs Result Diagrams: 05/24/22 18:16 05/24/22 18:16 Labs: Laboratory Results - last 24 hr 05/24/22 05/24/22 05/24/22 18:16 18:16 20:22 WBC 6.8 RBC 4.65 Hgb 13.6 Hct 40.3 MCV 86.8 MCH 29.3 MCHC 33.8 RDW 13.3 Plt Count 249 Neut % (Auto) 44.3 L Lymph % (Auto) 45.8 H [place] % (Auto) 6.9 Eos % (Auto) 2.0 Baso % (Auto) 1.0 Neut # (Auto) 3000 Lymph # (Auto) 3100 [place] # (Auto) 500 Eos # (Auto) 100 Baso # (Auto) 100 Sodium 138 Potassium 3.9 Chloride 100 Carbon Dioxide 27 BUN 12 Creatinine 0.58 Estimated GFR > 60 BUN/Creatinine Ratio 20.7 Glucose 80 Calcium 9.0 Total Bilirubin 0.3 AST 32 ALT 24 Alkaline Phosphatase 149 H Total Protein 8.0 Albumin 4.6 Globulin 3.4 Albumin/Globulin Ratio 1.4 Lipase 225 SARS-CoV-2 (PCR) Negative Assessment & Plan Assessment and plan (1) Appendicitis: Status: Acute Plan I explained the CT findings to Darby. I informed her that her appendix is enlarged with appendicoliths but without notable inflammation around the appendix. I explained that this could represent an early appendicitis or a low grade smoldering type of appendicitis especially given the presence of appendicoliths. I explained that it is also possible that her symptoms are unrelated to the appendix. Discussed risks and benefits of laparoscopic appendectomy. She would like to proceed. Time Spent With Patient Critical Care time: I spent a total of [] minutes of critical care time on this patient's care today; this time is exclusive of procedural time. Quality VTE Deep Vein Thrombosis/Pulmonary Embolism Present on Admission: No
[2022-05-25] MEDS: LACTATED RINGERS 1,000 ML 42 ML IV (10:25)
--- NOTE | 2022-05-25 10:49 | SUR.OPER ---
Supine on padded OR bed, head on pillow, arms secured on padded arm boards at <90 degrees abduction, legs uncrossed, safety belt at thigh, tape over blanket over lower legs.
[2022-05-25] MEDS: BUPIVACAINE 0.5% (PF) VIAL 30 ML INJ (11:00)
[2022-05-25] MEDS: LIDOCAINE 1% W/EPI 20 ML INJ (11:01)
--- NOTE | 2022-05-25 11:29 | PM.OP.1 ---
Operative Date/Time/Diagnoses Date of procedure: 05/25/22 Time of procedure: 11:29 Pre-op diagnosis: Acute appendicitis Post-op diagnosis: same Procedure & Clinicians Procedure: Laparoscopic appendectomy Same procedure as scheduled: Yes Surgeon: Aldo Willis Operative Notes Procedure in detail: Procedure in detail: The patient was on IV antibiotics. The patient was brought to the operating room, placed on the table in the supine position and general endotracheal anesthesia was induced. A time-out was performed. The abdomen was prepped and draped in the usual fashion. After injection of local anesthetic a 1 cm infraumbilical incision was created with a 15 blade scalpel. The umbilical stalk was grasped with a Arian clamp to elevate the abdominal wall. The infraumbilical midline fascia was cleared over 1 cm and the fascia was scored with cautery. The peritoneum was pierced with a Peon clamp. The John port was placed and the abdomen was insufflated to 15 mmHg. The camera was inserted and there was no evidence of any injury from the entry. Next, 5 mm ports were placed in the suprapubic and left lower quadrant positions under direct vision. The patient was placed in Trendelenburg with the right-side elevated. The terminal ileum was swept away from the cecum and the appendix was visualized. The appendix was distended but not particularly inflamed. The mesoappendix was divided with the hours he will to the base. Two PDS Endoloops were placed at the base and a 3rd endoloop was placed about a centimeter distally and the appendix was divided sharply. The specimen was placed in a Endo-Catch bag. A small amount of bloody fluid was suctioned from the pelvis. There did appear to be small right ovarian cyst. The table was flattened and the terminal ileum and omentum were allowed to slide in over the appendiceal stump. Finally, the 5 mm ports were removed under direct vision. The pneumoperitoneum was released and the John port was removed followed by the Endo-Catch bag. Additional local was injected into the fascia and the infraumbilical incision was closed with 2 interrupted 2-0 Vicryl sutures. The skin incisions were closed with 4 Monocryl. Steri-Strips were applied followed by Band-Aids. EBL: 5 mL Specimen: Appendix Post-operative Condition: stable Disposition: PACU
[2022-05-25] MEDS: ONDANSETRON 4 MG/2 ML INJ IV (11:41)
[2022-05-25] MEDS: HYDROMORPHONE 2 MG INJ IV (11:41)
[2022-05-25] MEDS: OXYCODONE/ACETAMINOPHEN 5/325 TABLET 1 TAB PO (12:00)
--- NOTE | 2022-05-25 12:21 | PC.NURSE ---
Day shift: Pt back in room from PACU at approx 1215. She is A&Ox4. VS WNL. RA 100%. The 3 lap sites are CDI. Tolerating ice chips and water. Advised to drink and eat slowly for the next 24 hours. Call light in reach. Will continue with post-op plan of care.
--- NOTE | 2022-05-25 12:24 | CM.DANOTE ---
DCP: Case received, EMR reviewed and met with patient. Introduced self and role. Was able to obtain information from patient. DCP assessment completed with information currently available. Patient is a 31 year old female who admitted yesterday evening to the care of the hospitalist/surgical team. PCP: JACEY Vega. Payer: confirmed: [employer]. Patient came to the hospital via private vehicle secondary to having right lower quadrant pain. Notes indicate that pain has been persistent. Patient diagnosed with appendicitis. Surgery consult was made. Patient had laparoscopic appendectomy this am. Prior to surgery, she was placed on IV/ABO. Met with patient prior to surgery. Confirmed that she resides in [place], [place] of [place]. She comes to this hospital, because she likes the care here. Her primary care provider is also next door, Tamar Austin. Patient is independent at her baseline, and is employed at [employer]. P: DCP to continue to follow. Plan is home when deemed medically stable, post surgery. Emilia Ruby RN/Equipment Operat0R Discharge Planning/Care Management CM Discharge Assessment Start: 05/25/22 12:22 Freq: Status: Active Protocol: Document 05/25/22 12:22 (Rec: 05/25/22 12:24 [id number]) Discharge Planning Assessment Assigned Improvement Analyst Emilia Ruby RN/Equipment Operat0R Advance Directives? No History Provided By Patient,Medical Record Prior Living Arrangements House Household Members significant other Type of transporation used prior to Drives own vehicle admit Independent with ADL's Yes Is patient alert and oriented? Yes Caregiver for Another No Barriers to Discharge No Discharge Plan Home Transportation Arrangement Family Referrals Initiated None needed Whiteboard Updated in Patient Room with Yes name and ext. # of Improvement Analyst Review Status In Process Next Review Type Continued Stay Review
[2022-05-25] MEDS: ACETAMINOPHEN 325 MG TABLET 975 MG PO ×2 (13:49→20:14)
[2022-05-25] MEDS: HYDROCODONE/ACET 5/325 TABLET 1 TAB PO ×2 (16:22→23:50)
[2022-05-25] MEDS: HYDROMORPHONE 1 MG INJ IV ×2 (17:13→21:06)
[2022-05-25] MEDS: SODIUM CHLORIDE 0.9% FLUSH 10 ML IV ×2 (20:16→21:07)
--- NOTE | 2022-05-25 22:03 | PC.NURSE ---
Addendum entered by Airam Medley R.N. 05/25/22 23:59: Slept for a while and now again complaining of 6/10 right sided abdominal pain; medicated with Vicodin. Original Note: Patient is alert and oriented; soft spoken with flat affect. Breath sounds diminished and patient is reluctant to take deep breaths; instructed on prevention of pneumonia post-op and verbalizes understanding. RA sat 95%. HRR. Nauseated earlier today but now denies nausea. BT present and abdomen is soft but having tenderness/pain in right side of abdomen so was medicated with scheduled Tylenol + Toradol but continued to complain of increasing pain so then medicated with Dilaudid. Denies dysuria, frequency or urgency with urination. Is able to turn herself in bed. Ambulated in rae with walker and SBA; reports poor tolerance related to pain. Lap sites to abdomen with shadow drainage noted on umbilical bandaid. Wearing bilateral calf SCD's. Fall risk score is moderate but calls appropriately for assistance.
[2022-05-26] MEDS: KETOROLAC 30 MG/ML VIAL IV ×3 (02:47→14:06)
[2022-05-26] MEDS: ACETAMINOPHEN 325 MG TABLET 975 MG PO ×2 (03:00→14:03)
[2022-05-26] MEDS: HYDROMORPHONE 1 MG INJ IV ×2 (04:35→10:32)
[2022-05-26] MEDS: SODIUM CHLORIDE 0.9% FLUSH 10 ML IV ×4 (04:36→14:07)
[2022-05-26] MEDS: PIPERACILLIN/TAZO 3.375 GM in SODIUM CHLORIDE 0.9% 100 ML IV (04:42)
[2022-05-26 08:41] VITALS: BP 134/79; PULSE 81; RESP 15; TEMP 36.7; O2SAT 100
[2022-05-26] MEDS: ENOXAPARIN 40 MG/0.4 ML SYRINGE SUBCUT (08:57)
--- NOTE | 2022-05-26 11:37 | P.PN_ITS ---
Subjective Subjective Date Patient Seen: 05/26/22 Time Patient Seen: 11:37 Interval history: Darby has had right sided abominal pain. She has required dilaudid. She has tolerated a diet and has passed some flatus. She has ambulated down the rae with assistance. Exam Vital Signs (past 8 hours): - 05/26/22 08:41 Temperature 98.0 F Pulse Rate 81 Respiratory Rate 15 Blood Pressure 134/79 Pulse Oximetry 100 Oxygen Flow Rate 0 Oxygen Delivery Method Room Air Oxygen Flow Rate 0 Narrative Exam Narrative: Abdomen soft Incisions CDI Objective Labs Result Diagrams: 05/24/22 18:16 05/24/22 18:16 [facility] Medical History Chicken pox (~1998) Dyslexia Fatty liver Hydroureter, right Internal hemorrhoids URI (upper respiratory infection) Vertigo (~2017) Well adult Surgical History Status post rhinoplasty Social History household members: significant other Smoking Status: Former smoker alcohol intake: current Assessment & Plan Assessment and plan (1) Postoperative examination: Status: Acute Plan Will check a CBC If she feels better later today and CBC is normal she could go home. Time Spent With Patient Critical Care time: I spent a total of [] minutes of critical care time on this patient's care today; this time is exclusive of procedural time. Quality VTE Deep Vein Thrombosis/Pulmonary Embolism Present on Admission: No
[2022-05-26 12:08] LABS: Add Manual Diff / Slide Review NO; Basophils Absolute Auto 0 /uL (0-100); Basophils Percent Auto 0.3 % (0-2); Eosinophils Absolute Auto 0 /uL (0-450); Eosinophils Percent Auto 0.1 % (2-4); Hematocrit 37.6 % (36-46); Hemoglobin 12.6 g/dL (12.0-16.0); Lymphocytes Absolute Auto 2100 /uL (1100-4500); Lymphocytes Percent Auto 18.9 % (25-40); Mean Corpuscular HGB Conc 33.4 % (30-36); Mean Corpuscular Volume 86.8 fL (80-100); Monocytes Absolute Auto 900 /uL (0-900); Monocytes Percent Auto 7.8 % (3-14); Neutrophils Absolute Auto 8100 /uL (1500-7000); Neutrophils Percent Auto 72.9 % (50-75); Platelet Count 237 X10^3/uL (150-400); Red Blood Cell Count 4.34 X10^6/uL (4.0-5.2); Red Cell Distribution Width 13.5 % (11.6-14.8); White Blood Cell Count 11.1 X10^3/uL (4.5-11.0)
[2022-05-26] MEDS: OXYCODONE IR 5 MG TABLET PO ×2 (12:14→16:05)
--- NOTE | 2022-05-26 16:48 | PC.NURSE ---
Day shift: Paperwork signed and all question answered. Pt's SO in room for teachings. Pain well controlled per AUG this afternoon. Pt has all personal belongings. MD scripts sent to Pt's pharmacy electronic. Left unit via WC at approx 1650. Taken by FABRICE Barnes. Pt's SO will be driving them home to [place].
== END 2022-05-26 16:51 | disposition home or self-care (01) ==
LOC: ED 18:03 → AC 05-25 09:21
PROVIDERS: Emergency Medicine; Surgery; Admitting Provider Surgery; Emergency Provider Emergency Medicine; PCP Nurse Practitioner; Referring Provider Emergency Medicine; Visit Provider Surgery
PROC: 0DTJ4ZZ Resection of Appendix, Percutaneous Endoscopic Approach (ICD-10-PCS; CPT 44970; principal; 2022-05-25 11:00)
DX: K35.80 Unspecified acute appendicitis (principal); K38.1 Appendicular concretions; Z20.822 Contact with and (suspected) exposure to COVID-19
CPT/HCPCS: 44970; 36415; 74177; 76830; 76856; 80053; 81003; 81025; 83690; 85025; 87635; 93975; 96365; 96366; 96372; 96375; 96376; 99219; 99284; C9803; G0378; J1100; J1170; J1650; J1885; J2250; J2405; J2543; J2704; J3010; J7050; Q9967

== ENCOUNTER 2022-06-05 22:57 | Emergency (ER) | payer OTHER, SELFPAY ==
[2022-06-05 23:01] VITALS: BP 126/81; PULSE 71; RESP 16; TEMP 36.2; O2SAT 100; BMI 25.7
--- NOTE | 2022-06-06 01:07 | ED.GENADULT ---
HPI - General Adult General Chief complaint: Abdominal Pain Stated complaint: abd pain same location appendix removed Time Seen by Provider: 06/05/22 23:40 Source: patient Mode of arrival: Ambulatory History of Present Illness HPI narrative: 31-year-old female who 2 weeks ago had an appendectomy. Since that time she is had residual pain in her right lower quadrant. She also states that she is had very irregular bowel movement since that time. She is not taken any pain medication in several days. She has had her follow-up with General surgery. She states that she is been ?released ?she states she is been told that this his normal postoperative discomfort. She has not had any fevers. No urinary symptoms. No vaginal bleeding. No vomiting. Related Data Previous Rx's Medication Instructions Recorded ondansetron 4 mg disintegrating 4 mg PO Q8H PRN nausea and 05/25/22 tablet vomiting #20 tabs oxycodone 5 mg tablet 5 mg PO Q4H PRN pain #10 tabs 05/26/22 Allergies Allergy/AdvReac Type Severity Reaction Status Date / Time No Known Drug Allergies Allergy Verified 05/24/22 17:03 Review of Systems Respiratory Respiratory: Reports system reviewed and no additional complaints, except as documented Gastrointestinal Gastrointestinal: Reports system reviewed and no additional complaints, except as documented Genitourinary Genitourinary: Reports system reviewed and no additional complaints, except as documented Integumentary/Breasts Skin/Breast: Reports system reviewed and no additional complaints, except as documented Patient History Medical History Chicken pox (~1998) Dyslexia Fatty liver Hydroureter, right Internal hemorrhoids URI (upper respiratory infection) Vertigo (~2018) Well adult Surgical History Status post rhinoplasty Social History household members: significant other Smoking Status: Former smoker alcohol intake: current Smoking Status: Former smoker alcohol intake frequency: holidays/special occasions only Substance Use Type: does not use Exam Initial Vital Signs Initial Vital Signs: Vital Signs Temperature 97.2 F L 06/05/22 23:01 Pulse Rate 71 06/05/22 23:01 Respiratory Rate 16 06/05/22 23:01 Blood Pressure 126/81 06/05/22 23:01 Pulse Oximetry 100 06/05/22 23:01 Oxygen Delivery Method 06/05/22 23:01 [facility] Head: normal to inspection and normocephalic GI Inspection: normal to inspection Palpation: soft, No firm, No guarding and tender (Right lower quadrant) Skin Other: Healing surgical scar consistent with her history. Extrem General: normal to inspection and capillary refill normal Course Orders Ordered: ED Orders 06/06/22 01:08 CT abdomen pelvis w con Stat 06/06/22 01:20 Complete Blood Count AUTO DIFF Stat Comprehensive Metabolic Panel Stat Lipase Stat Vital Signs Vital signs: Vital Signs - 8 hr 06/05/22 23:01 Temperature 97.2 F L Pulse Rate 71 Respiratory Rate 16 Blood Pressure 126/81 Pulse Oximetry 100 Oxygen Delivery Method Room Air Medical Decision Making Lab Data Lab results reviewed: Yes I reviewed the patient's lab results. Result diagrams: 06/06/22 01:20 06/06/22 01:20 Labs: Lab Results 06/06/22 06/06/22 Range/Units 01:20 01:20 WBC 6.6 (4.5-11.0) X10^3/uL RBC 4.29 (4.0-5.2) X10^6/uL Hgb 12.5 (12.0-16.0) g/dL Hct 37.4 (36-46) % MCV 87.2 (80-100) fL MCH 29.1 (26-34) PG MCHC 33.3 (30-36) % RDW 13.2 (11.6-14.8) % Plt Count 258 (150-400) X10^3/uL Neut % (Auto) 45.2 L (50-75) % Lymph % (Auto) 44.9 H (25-40) % [place] % (Auto) 6.8 (3-14) % Eos % (Auto) 2.5 (2-4) % Baso % (Auto) 0.6 (0-2) % Neut # (Auto) 3000 (8723-8335) /uL Lymph # (Auto) 2900 (5385-5544) /uL [place] # (Auto) 400 (0-900) /uL Eos # (Auto) 200 (0-450) /uL Baso # (Auto) 0 (0-100) /uL Sodium 139 (137-145) mmol/L Potassium 3.5 (3.4-5.1) mmol/L Chloride 105 (98-107) mmol/L Carbon Dioxide 24 (22-32) mmol/L BUN 9 (7-17) mg/dL Creatinine 0.74 (0.52-1.04) mg/dL Estimated GFR > 60 (>60) mL/min BUN/Creatinine Ratio 12.2 (6-22) Glucose 82 (70-100) mg/dL Calcium 8.9 (8.4-10.2) mg/dL Total Bilirubin 0.7 (0.2-1.3) mg/dL AST 26 (14-36) IU/L ALT 22 (<35) IU/L Alkaline Phosphatase 83 (38-126) U/L Total Protein 7.8 (6.3-8.2) g/dL Albumin 4.4 (3.5-5.0) g/dL Globulin 3.4 (1.7-4.1) g/dL Albumin/Globulin Ratio 1.3 (1.0-2.8) Lipase 206 (23-300) U/L Point of Care Testing Test Results Negative Urine Dip Bedside Urine Glucose Negative Bedside Urine Bilirubin - Negative Bedside Urine Ketone - Negative Urine Specific [place] 1.005 Bedside Urine Occult Blood - Negative Bedside Urine pH 6.0 Bedside Urine Protein - Negative Bedside Urine Urobilinogen - Negative Bedside Urine Nitrite - Negative Bedside Urine Leukocytes - Negative Esterase Point of care testing: Point of Care Testing Test Results Negative Urine Dip Bedside Urine Glucose Negative Bedside Urine Bilirubin - Negative Bedside Urine Ketone - Negative Urine Specific [place] 1.005 Bedside Urine Occult Blood - Negative Bedside Urine pH 6.0 Bedside Urine Protein - Negative Bedside Urine Urobilinogen - Negative Bedside Urine Nitrite - Negative Bedside Urine Leukocytes - Negative Esterase Imaging Data CT scan - abdomen/pelvis: Radiologist's Impression: [address] [address] [address] Scan Report Signed Patient: Darby English MR#: [id number] : 1990 Acct:[id number] Age/Sex: 31 / F Date of Service: 06/06/22 Loc: ED Accession Number: [id number] ?? Procedure: CT abdomen pelvis w con Ordering Provider: Lanker,Andrae D.O. PROCEDURE:? CT ABDOMEN PELVIS W CON ? INDICATIONS:? Continued RLQ abd pain after appy ? TECHNIQUE:? After the administration of IV contrast, axial sections were acquired from the lung bases to the pubic symphysis.? Coronal and sagittal reformats were performed.? For radiation dose reduction, the following was used:? automated exposure control, adjustment of mA and/or kV according to patient size. ? COMPARISON:? [facility], CT, CT ABDOMEN PELVIS W CON, 05/24/2022, 18:39. ? FINDINGS:? Image quality:? Excellent.? ? Lung bases:? There is minimal dependent atelectasis.? ? Heart:? Heart is normal in size. ? ? ABDOMEN: Liver:? A small hypodense focus anteriorly in the right hepatic lobe is too small to characterize but likely represents a cyst.? Finding is unchanged from the prior study. Gallbladder:? Within normal limits without calcified gallstones.? ? Biliary ducts:? No biliary ductal dilatation.? ? Pancreas:? Unremarkable.? ? Spleen:? Normal in size.? ? Adrenal Glands:? No adrenal nodules.? ? Kidneys and Ureters:? No hydronephrosis.? ? ? Stomach and Bowel:? Stomach, small bowel loops, and colon are normal in caliber and wall thickness.? The appendix is surgically absent.? There is colonic diverticulosis without acute diverticulitis. Peritoneum:? There is a small amount of free fluid in the pelvis which appears within physiologic limits.? No discrete loculated fluid collections to suggest an abscess.? No free air.? ? Ventral Wall: ? No hernia.? Abdominal Nodes:? No retroperitoneal or mesenteric adenopathy by size criteria.? Vessels:? Aorta and inferior vena cava are normal in size.? ? PELVIS: Pelvic Organs:? There is a small peripherally enhancing cyst in the right ovary measuring up to 1.8 cm.? Uterus and ovaries appear within normal size limits.? ? Bladder:? Unremarkable.? ? Pelvic Nodes: No enlarged lymph nodes.? Miscellaneous: No inguinal hernias are seen. ? ? ? Bones:? Visualized osseous structures demonstrate no suspicious focal lesions. ? IMPRESSION:? ? 1. No evidence of intra-abdominal abscess. ? 2. Small peripherally enhancing cyst in the right ovary likely represents a physiologic cyst. ? 3. Small amount of pelvic free fluid appears within physiologic limits.? ? ? Dictated by: Blake Connor M.D. on 06/06/2022 at 1:54 ? ? Approved by: Blake Connor M.D. on 06/06/2022 at 1:58?? MDM Narrative Medical decision making narrative: After discussion with the patient's regarding the risks and benefits of a repeat CT scan and what we would be evaluating with this we did decide to repeat the scan. It was relatively unremarkable. She does have a right ovarian cyst which I feel is unrelated to her discomfort today. There is no new surgical pathology. No infection. No indication for admission to the hospital. Provided reassurance the patient. She was given return precautions. She expressed understanding and agreement. Discharge Plan Departure Patient Disposition: Home Clinical Impression: Abdominal pain Instructions: DI for Abdominal Pain-Adult Activity Restrictions/Additional Instructions: I recommend that you continue to follow all of the postoperative instructions given to you by the general surgeon. Return to the emergency department for any new symptoms. Prescriptions: No Action ondansetron 4 mg tablet,disintegrating 4 mg PO Q8H PRN (Reason: nausea and vomiting) Qty: 20 0RF oxycodone 5 mg tablet 5 mg PO Q4H PRN (Reason: pain) Qty: 10 0RF Referrals: Tamar Austin ARNP [Primary Care Provider] -
--- NOTE | 2022-06-06 01:08 | DI.CT.S_ITS ---
PROCEDURE: CT ABDOMEN PELVIS W CON INDICATIONS: Continued RLQ abd pain after appy TECHNIQUE: After the administration of IV contrast, axial sections were acquired from the lung bases to the pubic symphysis. Coronal and sagittal reformats were performed. For radiation dose reduction, the following was used: automated exposure control, adjustment of mA and/or kV according to patient size. COMPARISON: [facility], CT, CT ABDOMEN PELVIS W CON, 05/24/2022, 18:39. FINDINGS: Image quality: Excellent. Lung bases: There is minimal dependent atelectasis. Heart: Heart is normal in size. ABDOMEN: Liver: A small hypodense focus anteriorly in the right hepatic lobe is too small to characterize but likely represents a cyst. Finding is unchanged from the prior study. Gallbladder: Within normal limits without calcified gallstones. Biliary ducts: No biliary ductal dilatation. Pancreas: Unremarkable. Spleen: Normal in size. Adrenal Glands: No adrenal nodules. Kidneys and Ureters: No hydronephrosis. Stomach and Bowel: Stomach, small bowel loops, and colon are normal in caliber and wall thickness. The appendix is surgically absent. There is colonic diverticulosis without acute diverticulitis. Peritoneum: There is a small amount of free fluid in the pelvis which appears within physiologic limits. No discrete loculated fluid collections to suggest an abscess. No free air. Ventral Wall: No hernia. Abdominal Nodes: No retroperitoneal or mesenteric adenopathy by size criteria. Vessels: Aorta and inferior vena cava are normal in size. PELVIS: Pelvic Organs: There is a small peripherally enhancing cyst in the right ovary measuring up to 1.8 cm. Uterus and ovaries appear within normal size limits. Bladder: Unremarkable. Pelvic Nodes: No enlarged lymph nodes. Miscellaneous: No inguinal hernias are seen. Bones: Visualized osseous structures demonstrate no suspicious focal lesions. IMPRESSION: 1. No evidence of intra-abdominal abscess. 2. Small peripherally enhancing cyst in the right ovary likely represents a physiologic cyst. 3. Small amount of pelvic free fluid appears within physiologic limits. Dictated by: Blake Connor M.D. on 06/06/2022 at 1:54 Approved by: Blake Connor M.D. on 06/06/2022 at 1:58
[2022-06-06 01:39] LABS: Add Manual Diff / Slide Review NO; Basophils Absolute Auto 0 /uL (0-100); Basophils Percent Auto 0.6 % (0-2); Eosinophils Absolute Auto 200 /uL (0-450); Eosinophils Percent Auto 2.5 % (2-4); Hematocrit 37.4 % (36-46); Hemoglobin 12.5 g/dL (12.0-16.0); Lymphocytes Absolute Auto 2900 /uL (1100-4500); Lymphocytes Percent Auto 44.9 % (25-40); Mean Corpuscular HGB Conc 33.3 % (30-36); Mean Corpuscular Hemoglobin 29.1 PG (26-34); Mean Corpuscular Volume 87.2 fL (80-100); Monocytes Absolute Auto 400 /uL (0-900); Monocytes Percent Auto 6.8 % (3-14); Neutrophils Absolute Auto 3000 /uL (1500-7000); Neutrophils Percent Auto 45.2 % (50-75); Platelet Count 258 X10^3/uL (150-400); Red Blood Cell Count 4.29 X10^6/uL (4.0-5.2); Red Cell Distribution Width 13.2 % (11.6-14.8); White Blood Cell Count 6.6 X10^3/uL (4.5-11.0)
[2022-06-06 01:41] LABS: Alanine Aminotransferase 22 IU/L (<35); Albumin 4.4 g/dL (3.5-5.0); Albumin Globulin Ratio 1.3 (1.0-2.8); Alkaline Phosphatase 83 U/L (38-126); Aspartate Aminotransferase 26 IU/L (14-36); BUN Creatinine Ratio 12.2 (6-22); Bilirubin Total 0.7 mg/dL (0.2-1.3); Blood Urea Nitrogen 9 mg/dL (7-17); Calcium 8.9 mg/dL (8.4-10.2); Carbon Dioxide 24 mmol/L (22-32); Chloride 105 mmol/L (98-107); Estimated Glomerular Filt Rate > 60 mL/min (>60); Globulin 3.4 g/dL (1.7-4.1); Glucose 82 mg/dL (70-100); HEMOLYSIS 34 (0-50); Lipase 206 U/L (23-300); Potassium 3.5 mmol/L (3.4-5.1); Sodium 139 mmol/L (137-145); Total Protein 7.8 g/dL (6.3-8.2)
[2022-06-06 02:35] VITALS: O2SAT 85
[2022-06-06 02:36] VITALS: BP 137/78; PULSE 68; O2SAT 99
[2022-06-06 02:40] VITALS: BP 137/78; PULSE 73; RESP 20; O2SAT 100
== END 2022-06-06 02:43 | disposition home or self-care (01) ==
PROVIDERS: Emergency Provider Emergency Medicine; PCP Nurse Practitioner
DX: R10.31 Right lower quadrant pain (principal)
CPT/HCPCS: 74177; 80053; 81003; 81025; 83690; 85025; 99282; 99284; Q9967

== ENCOUNTER → 2022-09-24 12:20 | Outpatient (CLI) | payer OTHER, SELFPAY ==
[2022-09-24 13:17] LABS: Influenza A - CEPHEID Flu A NEGATIVE (NEGATIVE); Influenza B - CEPHEID Flu B NEGATIVE (NEGATIVE); Respiratory Syncytial Virus Negative (Negative)
[2022-09-24 13:20] LABS: COVID-19 CEPHEID 4-PLEX PCR POSITIVE (Negative)
== END ==
PROVIDERS: PCP Nurse Practitioner; Visit Provider Physician Assistant
DX: R05.1 Acute cough (principal); J02.9 Acute pharyngitis, unspecified
CPT/HCPCS: 0241U; 87070

== ENCOUNTER → 2023-03-24 11:34 | Outpatient (CLI) | payer OTHER, MEDICAID, SELFPAY ==
[2022-09-25 12:11] VITALS: BMI 26.6
[2023-03-24 12:32] LABS: Influenza A - CEPHEID Flu A NEGATIVE (NEGATIVE); Influenza B - CEPHEID Flu B NEGATIVE (NEGATIVE); Respiratory Syncytial Virus Negative (Negative)
[2023-03-24 12:33] LABS: COVID-19 CEPHEID 4-PLEX PCR Negative (Negative)
== END ==
PROVIDERS: PCP Nurse Practitioner; Visit Provider Physician Assistant
DX: R53.83 Other fatigue (principal); Z20.822 Contact with and (suspected) exposure to COVID-19
CPT/HCPCS: 0241U

== ENCOUNTER → 2023-05-01 08:51 | Outpatient (CLI) | payer OTHER, MEDICAID, SELFPAY ==
[2022-09-25 12:11] VITALS: BMI 26.6
--- NOTE | 2023-05-01 08:51 | DI.US.S_ITS ---
PROCEDURE: US ABDOMEN LIMITED INDICATIONS: hepatic steatosis TECHNIQUE: Real-time scanning was performed of the abdominal and retroperitoneal organs, with image documentation. COMPARISON: [facility], CT, CT ABDOMEN PELVIS W CON, 06/06/2022, 1:20. [facility], US, US ABDOMEN LIMITED, 02/25/2022, 11:49. FINDINGS: Liver: Liver is normal in size and homogeneous in echotexture. Gallbladder: Gallbladder is within normal limits. Biliary ducts: Intrahepatic bile ducts are non-dilated. Extrahepatic bile duct caliber measures 2.6 mm. Normal is 6-7 mm or less in diameter, or 10 mm or less post-cholecystectomy. Pancreas: Visualized portions of the pancreas are sonographically normal. IMPRESSION: Unremarkable ultrasound examination of right upper quadrant abdomen. Dictated by: Gurmeet Salinas M.D. on 05/01/2023 at 13:29 Approved by: Gurmeet Salinas M.D. on 05/01/2023 at 13:30
== END ==
PROVIDERS: PCP Nurse Practitioner; Referring Provider Nurse Practitioner; Visit Provider Nurse Practitioner
DX: K76.0 Fatty (change of) liver, not elsewhere classified (principal); R16.0 Hepatomegaly, not elsewhere classified
CPT/HCPCS: 76705

== ENCOUNTER → 2023-06-07 09:00 | Outpatient (CLI) | payer OTHER, MEDICAID, SELFPAY ==
[2022-09-25 12:11] VITALS: BMI 26.6
[2023-06-07 10:24] LABS: Add Manual Diff / Slide Review NO; Basophils Absolute Auto 0 /uL (0-100); Basophils Percent Auto 0.8 % (0-2); Eosinophils Absolute Auto 100 /uL (0-450); Hematocrit 40.5 % (36-46); Hemoglobin 13.7 g/dL (12.0-16.0); Lymphocytes Absolute Auto 2200 /uL (1100-4500); Lymphocytes Percent Auto 41.4 % (25-40); Mean Corpuscular HGB Conc 33.9 % (30-36); Mean Corpuscular Hemoglobin 30.5 PG (26-34); Mean Corpuscular Volume 89.9 fL (80-100); Monocytes Absolute Auto 300 /uL (0-900); Monocytes Percent Auto 6.3 % (3-14); Neutrophils Absolute Auto 2700 /uL (1500-7000); Neutrophils Percent Auto 50.5 % (50-75); Platelet Count 214 X10^3/uL (150-400); Red Blood Cell Count 4.51 X10^6/uL (4.0-5.2); Red Cell Distribution Width 12.5 % (11.6-14.8); White Blood Cell Count 5.4 X10^3/uL (4.5-11.0)
[2023-06-07 10:38] LABS: Alanine Aminotransferase 22 IU/L (<35); Albumin 4.5 g/dL (3.5-5.0); Albumin Globulin Ratio 1.5 (1.0-2.8); Alkaline Phosphatase 123 U/L (38-126); Aspartate Aminotransferase 33 IU/L (14-36); BUN Creatinine Ratio 12.7 (6-22); Bilirubin Total 0.8 mg/dL (0.2-1.3); Blood Urea Nitrogen 8 mg/dL (7-17); Calcium 9.7 mg/dL (8.4-10.2); Carbon Dioxide 25 mmol/L (22-32); Chloride 100 mmol/L (98-107); Cholesterol 154 mg/dL (140-199); Estimated Glomerular Filt Rate > 60 mL/min (>60); Globulin 3.1 g/dL (1.7-4.1); Glucose 64 mg/dL (70-100); HDL Cholesterol 63 mg/dL (40-60); HEMOLYSIS < 15 (0-50); LDL Cholesterol Calculated 83 mg/dL (<100); Potassium 4.2 mmol/L (3.4-5.1); Sodium 135 mmol/L (137-145); Total Protein 7.6 g/dL (6.3-8.2); Triglycerides 41 mg/dL (35-150)
[2023-06-07 10:46] LABS: Creatinine Urine Random 55.2 mg/dL
[2023-06-07 10:53] LABS: Microalbumin Urine Random < 0.6 mg/dL (0-1.6)
[2023-06-07 11:14] LABS: Thyroid Stimulating Hormone 0.816 uIU/mL (0.47-4.68)
[2023-06-10 19:31] LABS: HIV 1 & 2 Ab/Ag 4th Gen Combo NEGATIVE (NEGATIVE); Hep C Virus Ab w/Reflex Quant NEGATIVE s/c (NEGATIVE)
== END ==
PROVIDERS: PCP Nurse Practitioner; Referring Provider Nurse Practitioner; Visit Provider Nurse Practitioner
DX: Z00.00 Encounter for general adult medical examination without abnormal findings (principal)
CPT/HCPCS: 36415; 80053; 80061; 82043; 82570; 84439; 84443; 84481; 85025; 86803; 87389

== ENCOUNTER → 2023-11-28 14:46 | Outpatient (CLI) | payer OTHER, SELFPAY ==
[2022-09-25 12:11] VITALS: BMI 26.6
[2023-11-28 15:52] LABS: C-Reactive Protein Quant < 0.5 mg/dL (<1.0); Rheumatoid Factor < 8.6 IU/mL (<12.0); Uric Acid 4.8 mg/dL (2.5-6.2)
[2023-12-02 19:10] LABS: ANA Screen, IFA Negative (.)
== END ==
LOC: LAB 14:47
PROVIDERS: PCP Nurse Practitioner; Referring Provider Podiatrist; Visit Provider Podiatrist
DX: M10.9 Gout, unspecified (principal)
CPT/HCPCS: 36415; 84550; 86038; 86140; 86430

== ENCOUNTER → 2024-01-01 14:53 | Outpatient (CLI) | payer OTHER, SELFPAY ==
[2022-09-25 12:11] VITALS: BMI 26.6
== END ==
PROVIDERS: PCP Nurse Practitioner; Referring Provider Nurse Practitioner; Visit Provider Nurse Practitioner
DX: R14.0 Abdominal distension (gaseous) (principal); R10.9 Unspecified abdominal pain; K59.00 Constipation, unspecified
CPT/HCPCS: 36415; 82784; 83516; 86003

== ENCOUNTER → 2024-02-04 07:40 | Outpatient (CLI) | payer OTHER, SELFPAY ==
[2022-09-25 12:11] VITALS: BMI 26.6
--- NOTE | 2024-02-04 07:41 | DI.RAD.S_ITS ---
PROCEDURE: XR FOOT LT MIN 3V INDICATIONS: Left forefoot pain TECHNIQUE: 3 views of the foot were acquired. COMPARISON: None. FINDINGS: Bones: No fractures or dislocations. No suspicious bony lesions. Soft tissues: No tibiotalar joint effusion. Achilles tendon appears normal. IMPRESSION: No acute bony abnormality. Dictated by: Toño Arteaga M.D. on 02/04/2024 at 8:10 Approved by: Toño Arteaga M.D. on 02/04/2024 at 8:10
== END ==
PROVIDERS: PCP Nurse Practitioner; Referring Provider Physician Assistant Surgical; Visit Provider Physician Assistant Surgical
DX: M79.672 Pain in left foot (principal)
CPT/HCPCS: 73630

== ENCOUNTER → 2024-02-11 14:29 | Outpatient (CLI) | payer OTHER, SELFPAY ==
[2022-09-25 12:11] VITALS: BMI 26.6
--- NOTE | 2024-02-11 14:30 | DI.CT.S_ITS ---
PROCEDURE: CT ABDOMEN PELVIS W CON INDICATIONS: worsening GI symptoms TECHNIQUE: After the administration of intravenous contrast, axial sections acquired from the lung bases to the pubic symphysis. Coronal and sagittal reformats were performed. For radiation dose reduction, the following was used: automated exposure control, adjustment of mA and/or kV according to patient size. COMPARISON: [facility], CT, CT ABDOMEN PELVIS W CON, 06/06/2022, 1:20. FINDINGS: Image quality: Diagnostic. Lower Chest: No significant findings. ABDOMEN: Liver: No solid mass. Gallbladder: Partially contracted. No calcifications or significant wall thickening. Biliary ducts: No biliary dilation. Pancreas: Normal size and morphology without visible ductal dilatation or inflammation. Spleen: Size is within normal limits. Adrenal Glands: No adrenal nodules. Kidneys and Ureters: No hydronephrosis. No solid mass. No complex renal cystic lesion which requires follow up. Normal ureters. Stomach and Bowel: The stomach contains ingested material. The 2nd portion of the duodenum is enlarged and demonstrates circumferential wall thickening for moderate length segment. Third and 4th portions of the duodenum appear normal pelvic small bowel loops are fluid-filled, normal caliber, and without focal bowel wall thickening. Mildly increased quantity of solid stool in the proximal colon and rectum. Peritoneum: No abnormal intraperitoneal fluid. No free air. Ventral Wall: No significant ventral hernia. Abdominal Nodes: No retroperitoneal or mesenteric adenopathy by size criteria. Vessels: The abdominal aorta, IVC, and portal vein are of normal caliber. PELVIS: Pelvic Organs: Vertically oriented uterus. There is an involuting, hypervascular right ovarian cyst. The left ovary was not well seen. Bladder: No bladder wall thickening, accounting for underdistention. Pelvic Nodes: No enlarged lymph nodes. Miscellaneous: No inguinal hernias are seen. Bones: No aggressive osseous abnormality. IMPRESSION: Moderate length segment duodenal wall thickening has been present previously, but more pronounced on the current study. This may reflect enteritis or enteropathy versus peptic ulcer disease. Correlate clinically and consider upper endoscopy if clinically indicated. Dictated by: Maame Ramirez M.D. on 02/12/2024 at 10:25 Approved by: Maame Ramirez M.D. on 02/12/2024 at 10:34
== END ==
LOC: CT 14:29
PROVIDERS: PCP Nurse Practitioner; Referring Provider Nurse Practitioner; Visit Provider Nurse Practitioner
DX: T78.1XXA Other adverse food reactions, not elsewhere classified, initial encounter (principal); R10.9 Unspecified abdominal pain; R14.0 Abdominal distension (gaseous)
CPT/HCPCS: 74177; Q9967

== ENCOUNTER 2024-04-08 14:09 | Day surgery (SDC) | payer OTHER, SELFPAY ==
[2024-04-06 10:16] VITALS: BMI 26.6
--- NOTE | 2024-04-08 | PATH_ITS ---
[facility] Accession Number: [id number] No. of containers..02 Tissue . 01 Material submitted: . PART A: duodenum - DUODENUM PART B: gastrointestinal site - ANTRUM . 01 Diagnosis: A. DUODENUM, BIOPSY: Duodenal mucosa with no diagnostic abnormality. Negative for active inflammation, features of sprue, dysplasia, or malignancy. . B. ANTRUM, BIOPSY: Gastric mucosa with no significant pathologic alterations. No Helicobacter pylori organisms identified on H/E slide. No intestinal metaplasia, dysplasia, or malignancy. . MRV 04/09/2024 1641 Local . 01 Electronically signed: . Rebecca Gonzalez MD, Pathologist NPI- [id number] . 01 Gross description: . Part A: DUODENUM: Received in formalin are 4 fragment(s) of sahni, soft tissue measuring 0.2 x 0.2 x 0.2 cm to 0.3 x 0.3 x 0.3 cm submitted entirely in 1 cassette(s) Part B: ANTRUM: Received in formalin are 3 fragment(s) of sahni, soft tissue measuring 0.2 x 0.2 x 0.1 cm to 0.4 x 0.2 x 0.2 cm submitted entirely in 1 cassette(s) /NICOLE 04/09/2024 0101 Local . 01 Pathologist provided ICD-10: K31.89 . 01 CPT . 353067, 054004 Specimen Comment: A courtesy copy of this report has been sent to [phone] Performed at: [address] [facility] [address], [place], [place] [id number] MD Blake Peters MD Phone: [phone]
[2024-04-08 14:59] VITALS: BP 121/75; PULSE 65; RESP 12; TEMP 36.2; O2SAT 100
--- NOTE | 2024-04-08 15:18 | PM.HP.1 ---
History of Present Illness History of Present Illness Date Patient Seen: 04/08/24 Time Patient Seen: 15:18 Chief complaint: [facility] Narrative: Mercy is a 33-year-old woman with abdominal pain and an abnormal CT. Please see the office note for details. [facility] Medical History Food sensitivity with gastrointestinal symptoms History of obesity Seborrheic dermatitis Overweight Foreign body (FB) in soft tissue Appendicitis Hydroureter, right Fatty liver URI (upper respiratory infection) Internal hemorrhoids Dyslexia Chicken pox (~1998) Vertigo (~2017) Surgical History S/P appendectomy Status post rhinoplasty Social History household members: significant other Smoking Status: Former smoker alcohol intake: current Meds Home Medications and Allergies Home Medications Medication Instructions Recorded Confirmed Type albuterol sulfate 90 mcg/actuation 2 puff inhalation Q4-6H PRN 06/18/23 04/05/24 Rx aerosol inhaler shortness of breath or wheezing #8.5 grams Allergies Allergy/AdvReac Type Severity Reaction Status Date / Time No Known Drug Allergies Allergy Verified 04/08/24 14:52 Exam Vital Signs (past 8 hours): - 04/08/24 14:59 Temperature 97.1 F L Pulse Rate 65 Respiratory Rate 12 Blood Pressure 121/75 Pulse Oximetry 100 Oxygen Delivery Method Room Air Oxygen Delivery Method Room Air Const General: No acute distress Assessment & Plan Assessment and plan (1) Food sensitivity with gastrointestinal symptoms: Status: Acute Plan EGD with biopsies Time-Based Coding :: [TOTAL MINUTES] spent with patient and on the chart (including review of chart, obtaining history, exam, reviewing outside data, placing orders, documenting exam and treatment plan, and counseling patient) on [DATE].
--- NOTE | 2024-04-08 16:11 | PM.OP.EGD ---
Operative Date/Time/Diagnoses Date of procedure: 04/08/24 Time of procedure: 16:11 Pre-op diagnosis: Abdominal pain Post-op diagnosis: same Procedure & Clinicians Study performed: Esophagogastroduodenoscopy Same procedure as scheduled: Yes Surgeon: Aldo Willis Procedure Notes Procedure in detail: Surgeon: Aldo Willis MD Anesthesia: Nelly Camilo timeout was performed. A bite blocked was placed. The patient was positioned in the left lateral decubitus position. Anesthesia was administered. The endoscope was inserted through the bite block and passed through the esophagus and stomach and into the duodenum. The duodenal mucosa appeared normal. Random biopsies were taken with cold forceps. The scope was withdrawn into the duodenal bulb and no other abnormalities were seen. The scope was withdrawn into the stomach. No abnormalities were seen. Random biopsies were taken from the antrum with cold forceps. The rest of the stomach was normal. The scope was retroflexed and no abnormalities were seen. The scope was withdrawn into the esophagus and no abnormalities were seen. The remainder of the esophagus was normal. The scope was withdrawn. The patient was awakened and brought to recovery. Sedation time: 7 minutes Findings: Grossly normal EGD Post-procedure Disposition: PACU
[2024-04-08 16:15] VITALS: BP 97/61; PULSE 92; RESP 22; TEMP 36.8; O2SAT 97
[2024-04-08 16:20] VITALS: BP 95/65; PULSE 93; RESP 13; O2SAT 98
[2024-04-08 16:26] VITALS: BP 108/77; PULSE 67; RESP 15; O2SAT 97
[2024-04-08 16:28] VITALS: BP 112/77; PULSE 66; RESP 14; TEMP 36.5; O2SAT 96
[2024-04-08 16:39] VITALS: BP 110/68; PULSE 71; RESP 12; TEMP 36.2; O2SAT 96
== END 2024-04-08 16:43 | disposition home or self-care (01) ==
PROVIDERS: PCP Student in an Organized Health Care Education/Training Program; Referring Provider Surgery; Visit Provider Surgery
PROC: 0DJ08ZZ Inspection of Upper Intestinal Tract, Via Natural or Artificial Opening Endoscopic (ICD-10-PCS; CPT 43235; principal; 2024-04-08 15:15)
DX: R10.9 Unspecified abdominal pain (principal)
CPT/HCPCS: 43235; J2405; J2704

== ENCOUNTER → 2024-04-28 11:56 | Outpatient (CLI) | payer OTHER, SELFPAY ==
[2024-04-06 10:16] VITALS: BMI 26.6
--- NOTE | 2024-04-28 11:58 | DI.US.S_ITS ---
PROCEDURE: US PELVIC COMPLETE INDICATIONS: Chronic Pelvic Pain TECHNIQUE: Real-time scanning was performed of the pelvic organs, with image documentation. Additional endovaginal scanning was necessary due to incomplete visualization of the adnexal and endometrial structures by transabdominal scanning. COMPARISON: [facility], US, US PELVIC COMPLETE, 05/24/2022, 17:39. [facility], CT, CT ABDOMEN PELVIS W CON, 02/11/2024, 15:37. FINDINGS: Uterus: 8 x 4 x 5 cm. Anteverted positioning. Endometrium measures 10 mm. Small amount mobile debris within the endometrium. Endometrium has a trilaminar appearance Ovaries: Follicular cyst in the right ovary measuring 2.7 cm. Mildly enlarged right ovary measuring 24 cc. Unremarkable left ovary. Other: No pathologic free abdominal or pelvic fluid. IMPRESSION: Follicular cyst measuring 2.7 cm is seen in the mildly enlarged right ovary. Trace mobile debris within the endometrium. Otherwise, no significant or acute pelvic abnormality. Dictated by: Dandy Neely M.D. on 04/28/2024 at 16:53 Approved by: Dandy Neely M.D. on 04/28/2024 at 16:55
== END ==
LOC: US 11:57
PROVIDERS: PCP Student in an Organized Health Care Education/Training Program; Referring Provider Student in an Organized Health Care Education/Training Program; Visit Provider Student in an Organized Health Care Education/Training Program
DX: N83.01 Follicular cyst of right ovary (principal); R10.2 Pelvic and perineal pain; G89.29 Other chronic pain
CPT/HCPCS: 76830; 76856

== ENCOUNTER 2024-05-06 09:30 | Day surgery (SDC) | payer OTHER, SELFPAY ==
[2024-04-06 10:16] VITALS: BMI 26.6
[2024-05-03 11:24] VITALS: BMI 22.6
[2024-05-06] VITALS (8 sets, daily range): BP systolic 116–130; BP diastolic 78–87; PULSE 62–90; RESP 12–19; TEMP 36.4–36.8; O2SAT 0–100; BMI 22.4
--- NOTE | 2024-05-06 | PATH_ITS ---
[facility] Accession Number: [id number] No. of containers..01 Tissue . 01 Material submitted: . peritoneum - PERITONEAL . 01 Diagnosis: PERITONEUM, BIOPSY: Fibrous tissue with endometrial-type glands and stroma, consistent with endometriosis. Negative for malignancy. MRV 05/11/2024 1653 Local . 01 Electronically signed: . Fariba Desouza MD, Pathologist NPI- [id number] . 01 Gross description: . PERITONEAL : Received in formalin is 1 fragment of sahni friable tissue measuring 0.8 x 0.7 x 0.2 cm. Tissue is inked. Specimen is sectioned and submitted in its entirety in 1 cassette. /NICOLE 05/07/20242001 Local . 01 Pathologist provided ICD-10: N80.9, R10.2 . 01 CPT . 572970 Performed at: [address] [facility] [address], [place], [place] [id number] MD Blake Peters MD Phone: [phone]
--- NOTE | 2024-05-06 09:35 | SUR.OPER ---
Lithotomy on padded OR bed, head on pillow, arms secured on padded arm boards at <90 degrees abduction. Legs secured in padded yellow fins stirrups.
[2024-05-06] MEDS: ACETAMINOPHEN 325 MG TABLET 975 MG PO (10:15)
[2024-05-06] MEDS: LACTATED RINGERS 1,000 ML 42 ML IV (10:16)
--- NOTE | 2024-05-06 10:19 | PM.PREOP ---
Pre-operative Note Interval Note History & Physical reviewed/Exam performed by Physician: Yes Changes to H&P: No H&P completed within 30 days and has changed as indicated here:: see H&P from 04/26/24
[2024-05-06] MEDS: BUPIVACAINE 0.25% (PF) VIAL 30 ML INJ (11:18)
--- NOTE | 2024-05-06 11:41 | PM.OP.1 ---
Operative Date/Time/Diagnoses Date of procedure: 05/06/24 Time of procedure: 11:00 Pre-op diagnosis: Pelvic pain Post-op diagnosis: other (Endometriosis) Procedure & Clinicians Procedure: Diagnostic laparoscopy Fulguration of endometriosis Same procedure as scheduled: Yes Indications: 33yo F with chronic pelvic pain, counseled and consented for diagnostic laparoscopy. Surgeon: Anyi Proctor Click Yes if Unassisted: Yes Anesthesia Type: General Operative Notes Findings: Powder-burn lesions noted in the anterior cul-de-sac. Stellate lesion noted near the colon on the left sidewall of the pelvis. Normal appearing uterus, bilateral fallopian tubes, and bilateral ovaries. Normal appearing liver edge and gallbladder. Closure Type: primary Specimen(s): other (peritoneal biopsy) Applied: catheter (removed after the case) Estimated Blood Loss (mL): 2 Blood products transfused: none Procedure in detail: The risks, benefits, indications and alternatives of the procedure were reviewed with the patient and informed consent was obtained. The pt was taken to the operating room where general anesthesia was obtained without difficulty. The pt was then placed in the low lithotomy position using gel-padded Jean-Claude Stirrups. Sequential compression devices were placed bilaterally for VTE prophylaxis. Pt was then prepped and draped in the usual sterile fashion. A Villa catheter was placed without difficulty. A sponge stick was placed in the vagina as a means to manipulate the uterus. Attention was then turned to the patient?s abdomen where a 5mm skin incision was made in the superior aspect of the umbilicus after injection of 0.25% marcaine. A 5mm trocar and sleeve were then carefully introduced into the peritoneal cavity under direct visualization at a 90-degree angle while tenting up the abdominal wall. Intra-peritoneal placement was confirmed under direct visualization with the laparoscope with entry pressure <5mmHg. A pneumoperitoneum was obtained with several liters of CO2 gas, maximum pressure of 15mmHg. Upon entry into the peritoneal cavity, structures immediately below the incision were inspected and found to be free of injury. Two additional 5mm trocars were placed in the left lateral aspect of the abdominal wall under direct laparoscopic visualization after injection of 0.25% marcaine at each site. A survey of the pt?s abdomen and pelvis was notable for the above findings. Using an atraumatic grasper, one of the powder-burn lesions noted in the anterior cul-de-sac was elevated and excised using monopolar scissors. The specimen was sent to pathology for review. The remaining lesions in the anterior cul-de-sac were fulgurated with monopolar cautery. The lesion near the colon was not excised or fulgurated. The gas was then turned off and all CO2 was removed from the pt?s abdomen. The trocars were removed. The skin incision sites were reapproximated using 4-0 monocryl and dermabond. The sponge stick was removed from the vagina, and the villa catheter was removed from the bladder. All instruments were confirmed to be removed from the vagina. At the completion of the case the sponge and needle counts were correct x 2. The patient tolerated the procedure well and was taken to the PACU in stable condition. Complications: none Post-operative Condition: stable Disposition: PACU Plan for aftercare: Discharge to home once meeting criteria.
[2024-05-06] MEDS: OXYCODONE IR 5 MG TABLET PO (12:21)
[2024-05-07 05:14] LABS: Insulin Level Total 4.4 uIU/mL (2.6-24.9)
== END 2024-05-06 12:55 | disposition home or self-care (01) ==
PROVIDERS: PCP Student in an Organized Health Care Education/Training Program; Referring Provider Student in an Organized Health Care Education/Training Program; Visit Provider Student in an Organized Health Care Education/Training Program
PROC: 0U5B4ZZ Destruction of Endometrium, Percutaneous Endoscopic Approach (ICD-10-PCS; CPT 58662; principal; 2024-05-06 11:45)
DX: N80.399 Endometriosis of the pelvic peritoneum, other specified sites, unspecified depth (principal); N80.319 Endometriosis of the anterior cul-de-sac, unspecified depth
CPT/HCPCS: 58662; 81025; 83525; J0330; J1100; J1885; J2250; J2405; J2704; J3010; J3490

== ENCOUNTER → 2024-05-21 09:39 | Outpatient (CLI) | payer OTHER, SELFPAY ==
[2024-04-06 10:16] VITALS: BMI 26.6
[2024-05-21 13:20] LABS: Influenza A - CEPHEID Flu A NEGATIVE (NEGATIVE); Influenza B - CEPHEID Flu B NEGATIVE (NEGATIVE); Respiratory Syncytial Virus Negative (Negative)
[2024-05-21 13:41] LABS: COVID-19 CEPHEID 4-PLEX PCR Negative (Negative)
== END ==
PROVIDERS: PCP Student in an Organized Health Care Education/Training Program; Visit Provider Registered Nurse
DX: R50.9 Fever, unspecified (principal); J02.9 Acute pharyngitis, unspecified
CPT/HCPCS: 0241U; 87070

== ENCOUNTER → 2024-06-10 09:41 | Outpatient (CLI) | payer OTHER, SELFPAY ==
[2024-04-06 10:16] VITALS: BMI 26.6
[2024-06-10 10:21] LABS: Hematocrit 41.3 % (36-46); Hemoglobin 13.8 g/dL (12.0-16.0); Mean Corpuscular HGB Conc 33.4 % (30-36); Mean Corpuscular Hemoglobin 30.2 PG (26-34); Mean Corpuscular Volume 90.4 fL (80-100); Platelet Count 216 X10^3/uL (150-400); Red Blood Cell Count 4.57 X10^6/uL (4.0-5.2); Red Cell Distribution Width 13.2 % (11.6-14.8); White Blood Cell Count 4.6 X10^3/uL (4.5-11.0)
[2024-06-10 10:56] LABS: Alanine Aminotransferase 22 IU/L (<35); Albumin 4.3 g/dL (3.5-5.0); Albumin Globulin Ratio 1.4 (1.0-2.8); Alkaline Phosphatase 103 U/L (38-126); Aspartate Aminotransferase 30 IU/L (14-36); Bilirubin Total 0.7 mg/dL (0.2-1.3); Blood Urea Nitrogen 12 mg/dL (7-17); Calcium 9.4 mg/dL (8.4-10.2); Carbon Dioxide 28 mmol/L (22-32); Chloride 104 mmol/L (98-107); Cholesterol 153 mg/dL (140-199); Estimated Glomerular Filt Rate > 60 mL/min (>60); Glucose 80 mg/dL (70-100); HDL Cholesterol 64 mg/dL (40-60); HEMOLYSIS < 15 (0-50); LDL Cholesterol Calculated 77 mg/dL (<100); Potassium 4.1 mmol/L (3.4-5.1); Sodium 136 mmol/L (137-145); Total Protein 7.3 g/dL (6.3-8.2); Triglycerides 61 mg/dL (35-150)
[2024-06-10 11:22] LABS: HEMOLYSIS < 15 (0-50); Iron 148 ug/dL (37-170)
[2024-06-10 11:25] LABS: Creatinine Urine Random 41.43 mg/dL
[2024-06-10 11:30] LABS: Microalbumin Urine Random < 0.6 mg/dL (0-1.6)
[2024-06-10 11:31] LABS: Ferritin 33 ng/mL (6-137)
[2024-06-10 11:33] LABS: Percent Iron Saturation 53 % (15-50); Total Iron Binding Capacity 278 ug/dL (265-497); Transferrin 240 mg/dL (206-381)
[2024-06-10 11:49] LABS: Free T3, Triiodothyronine Free 3.65 pg/mL (2.77-5.27); Free T4, Direct Thyroxine 1.07 ng/dL (0.78-2.19)
[2024-06-10 12:02] LABS: Thyroid Stimulating Hormone 1.13 uIU/mL (0.47-4.68)
== END ==
LOC: LAB 09:42
PROVIDERS: PCP Student in an Organized Health Care Education/Training Program; Referring Provider Student in an Organized Health Care Education/Training Program; Visit Provider Student in an Organized Health Care Education/Training Program
DX: R53.82 Chronic fatigue, unspecified (principal)
CPT/HCPCS: 36415; 80053; 80061; 82043; 82570; 82728; 83540; 83550; 84439; 84443; 84481; 85027

== ENCOUNTER → 2024-06-15 15:43 | Outpatient (CLI) | payer OTHER, SELFPAY ==
[2024-04-06 10:16] VITALS: BMI 26.6
[2024-06-15 16:36] LABS: HEMOLYSIS < 15 (0-50); Iron 56 ug/dL (37-170)
[2024-06-15 16:37] LABS: Gamma Glutamyl Transpeptidase 11 U/L (12-43)
[2024-06-15 16:47] LABS: Percent Iron Saturation 20 % (15-50); Total Iron Binding Capacity 287 ug/dL (265-497); Transferrin 257 mg/dL (206-381)
[2024-06-15 16:54] LABS: Vitamin D 25 Hydroxy (D3) > 126 ng/mL (30.0-100.0)
[2024-06-15 17:04] LABS: Ferritin 26 ng/mL (6-137)
[2024-06-16 00:36] LABS: HBsAg Screen Negative (Negative); Hepatitis A Antibody IgM Negative (Negative); Hepatitis B Core Antibody IgM Negative (Negative); Hepatitis C Antibody Non Reactive (Non Reactive)
== END ==
LOC: LAB 15:44
PROVIDERS: PCP Student in an Organized Health Care Education/Training Program; Referring Provider Student in an Organized Health Care Education/Training Program; Visit Provider Student in an Organized Health Care Education/Training Program
DX: Z11.59 Encounter for screening for other viral diseases; Z13.21 Encounter for screening for nutritional disorder; N80.9 Endometriosis, unspecified; R10.2 Pelvic and perineal pain; R14.0 Abdominal distension (gaseous)
CPT/HCPCS: 36415; 80074; 82306; 82728; 82977; 83540; 83550

== ENCOUNTER 2024-10-30 14:27 | Emergency (ER) | payer OTHER, SELFPAY ==
[2024-04-06 10:16] VITALS: BMI 26.6
[2024-10-30] VITALS (13 sets, daily range): BP systolic 112–135; BP diastolic 74–91; PULSE 64–88; RESP 16–20; TEMP 36.6; O2SAT 96–100; BMI 21.7
[2024-10-30 14:51] LABS: Add Manual Diff / Slide Review NO; Basophils Absolute Auto 0 /uL (0-100); Basophils Percent Auto 0.6 % (0-2); Eosinophils Absolute Auto 200 /uL (0-450); Eosinophils Percent Auto 3.1 % (2-4); Hematocrit 41.8 % (36-46); Hemoglobin 14.3 g/dL (12.0-16.0); Lymphocytes Absolute Auto 2400 /uL (1100-4500); Lymphocytes Percent Auto 32.6 % (25-40); Mean Corpuscular HGB Conc 34.2 % (30-36); Mean Corpuscular Volume 90.5 fL (80-100); Monocytes Absolute Auto 400 /uL (0-900); Monocytes Percent Auto 5.6 % (3-14); Neutrophils Absolute Auto 4200 /uL (1500-7000); Neutrophils Percent Auto 58.1 % (50-75); Platelet Count 214 X10^3/uL (150-400); Red Blood Cell Count 4.62 X10^6/uL (4.0-5.2); Red Cell Distribution Width 12.7 % (11.6-14.8); White Blood Cell Count 7.3 X10^3/uL (4.5-11.0)
[2024-10-30 15:04] LABS: Alanine Aminotransferase 26 IU/L (<35); Albumin 4.9 g/dL (3.5-5.0); Albumin Globulin Ratio 1.6 (1.0-2.8); Alkaline Phosphatase 138 U/L (38-126); Aspartate Aminotransferase 34 IU/L (14-36); BUN Creatinine Ratio 26.9 (6-22); Bilirubin Total 0.4 mg/dL (0.2-1.3); Blood Urea Nitrogen 18 mg/dL (7-17); Calcium 9.3 mg/dL (8.4-10.2); Carbon Dioxide 25 mmol/L (22-32); Chloride 103 mmol/L (98-107); Estimated Glomerular Filt Rate > 60 mL/min (>60); Glucose 82 mg/dL (70-99); HEMOLYSIS < 15 (0-50); Lipase 266 U/L (23-300); Sodium 137 mmol/L (137-145); Total Protein 7.9 g/dL (6.3-8.2)
--- NOTE | 2024-10-30 15:05 | DI.RAD.S_ITS ---
PROCEDURE: XR ABDOMEN MIN 2V INDICATIONS: acute on chronic RLQ pn + constipation TECHNIQUE: 2 views of the abdomen were acquired. COMPARISON: [facility], CT, CT ABDOMEN PELVIS W CON, 02/11/2024, 15:37. FINDINGS: Surgical changes and devices: None. Bowel: No pneumoperitoneum. The bowel gas pattern is normal. A [id number] volume of stool can be seen within the colon. Soft tissues: No masses; visualized solid organ contours appear normal in size. No suspicious abdominal calcifications. Bones: No suspicious bony abnormalities. IMPRESSION: There is a [id number] volume of stool seen within the colon, which is consistent with the given clinical history of constipation. Dictated by: Lior Stephenson M.D. on 10/30/2024 at 14:41 Approved by: Lior Stephenson M.D. on 10/30/2024 at 14:42
--- NOTE | 2024-10-30 15:08 | ED_ITS ---
HPI - Abdominal Pain <Maryjane Jason PA-C - Last Filed: 10/30/24 19:34> General Chief Complaint: Abdominal Pain Stated Complaint: Lower RT ABD pain Time Seen by Provider: 10/30/24 14:37 Source: patient Mode of arrival: Ambulatory History of Present Illness HPI narrative: 34-year-old woman with a history of chronic abdominal pain, food sensitivities, endometriosis, presents with concern for worsening of her chronic right lower quadrant abdominal pain as well as associated sense of constipation currently 5/10 pain. She is specifically concerned about diverticulitis. Patient states that Friday and Friday of this week she had up to 7/10 abdominal pain that was intermittent and sharp feeling in the right low abdomen. Last night her pain was up to a 10/10 also sharp and stabbing feeling for about an hour. She states that she has baseline lower abdominal pain on the right that is intermittent but most days is a 3 or 4/10. She has been working with a dietitian since June and states she is eating very healthy diet with lots of fiber. She also was working with a 411 directory assistance operator to detox from heavy metals which were found by the 411 directory assistance operator. Stating that she has been taking with thiamine in and a anti yeast medication although she stopped both of these on October 20 this same time that her abdominal pain worsened somewhat this month. She had an exploratory laparotomy in May which did find endometriosis present. Elected not to start control for symptom control as she wanted to find the root cause and has been working with a 411 directory assistance operator that she says found that she has high levels of heavy metals in her body and she has been taking Methionine and another supplement to try to reduce her heavy metal levels and detox as well as another supplement to reduce yeast in the blood stream. She stopped both of these on the 20 of October. She states she typically has 1 normal bowel movement a day with some mild constipation/firm stool initially that is softer at the end. However for about the past week she has noted that she is having what feels like very loose stools and only once a day specifically after drinking caffeine. She states that she had a CT scan a few weeks after she had her appendix out that showed evidence of diverticulosis without diverticulitis and is concerned that she may have diverticulitis today. She has had problems in the past with ovarian cysts but states that this pain and discomfort does not feel similar to that. She states that she does hydrate well and eats healthy. She gets about 10 minutes of walking for exercise a day. She thinks it is very unlikely she could be . She is sexually active and not on control; her last menstrual cycle was October 19- and was typical for her with intense cramping and heavy bleeding for the 1st 2 days. She notes she does not typically take anything for her chronic abdominal pain she prefers not to take anything that might disrupt her GI system she has not taken anything for her pain today/recently. And declines pain medication at this time. She denies fevers, chills, nausea, vomiting, blood in her stool, mucus in her stool or any other symptoms. Related Data Previous Rx's Medication Instructions Recorded albuterol sulfate 90 mcg/actuation 2 puff inhalation Q4-6H PRN 06/18/23 aerosol inhaler shortness of breath or wheezing #8.5 grams norethindrone acetate 1.5 1 tab PO DAILY #63 tabs 05/21/24 mg-ethinyl estradiol 30 mcg tablet Allergies Allergy/AdvReac Type Severity Reaction Status Date / Time No Known Drug Allergies Allergy Verified 10/30/24 14:34 Review of Systems <Maryjane Jason PA-C - Last Filed: 10/30/24 19:34> Review of Systems Narrative: See HPI Patient History <Maryjane Jason PA-C - Last Filed: 10/30/24 19:34> Medical History History of obesity Food sensitivity with gastrointestinal symptoms Seborrheic dermatitis Overweight Foreign body (FB) in soft tissue Appendicitis Hydroureter, right Fatty liver URI (upper respiratory infection) Internal hemorrhoids Dyslexia Chicken pox (~1998) Vertigo (~2018) Surgical History History of hernia repair (2010) History of esophagogastroduodenoscopy (EGD) (04/08/24) History of colonoscopy S/P appendectomy Status post rhinoplasty Social History household members: spouse Smoking Status: Never smoker alcohol intake: former substance use type: does not use Smoking Status: Never smoker alcohol intake frequency: holidays/special occasions only Exam <HAMLET Moore Last Filed: 10/30/24 19:34> Narrative Exam Narrative: GENERAL: [34] year old patient appears stated age. Well-developed patient, in mild distress. HEAD: Atraumatic. Normocephalic. EYES: Pupils equal round and reactive. Extraocular motions intact. No scleral icterus. No injection or drainage. ENT: Nose without bleeding, purulent drainage. Throat without erythema, tonsillar hypertrophy or exudate. Airway patent. NECK: Trachea midline. CARDIOVASCULAR: Regular rate and rhythm without murmurs, gallops, or rubs. RESPIRATORY: Clear to auscultation. Breath sounds equal bilaterally. No wheezes, rales, or rhonchi. GASTROINTESTINAL: Abdomen soft, there is very slight tenderness of the left and right lower quadrants, otherwise non-tender, nondistended, no CVA tenderness. EXTREMITIES: No edema or joint tenderness. BACK: Nontender without deformity or crepitance. No flank tenderness. NEURO: AOx3. SKIN: Skin is warm, some diaphoresis of the flanks (patient attributes to two warm blankets) No rash or erythema of visible areas Initial Vital Signs Initial Vital Signs: Vital Signs Pulse Rate 72 10/30/24 14:32 Respiratory Rate 20 10/30/24 14:32 Blood Pressure 135/84 10/30/24 14:32 Pulse Oximetry 99 10/30/24 14:32 <Carolina Delarosa DO - Last Filed: 10/31/24 07:38> Initial Vital Signs Initial Vital Signs: Vital Signs Pulse Rate 72 10/30/24 14:32 Respiratory Rate 20 10/30/24 14:32 Blood Pressure 135/84 10/30/24 14:32 Pulse Oximetry 99 10/30/24 14:32 Course <Maryjane Jason PA-C - Last Filed: 10/30/24 19:34> Orders Ordered: Discontinued Medications Sodium Chloride (Normal Saline 0.9%) 1,000 mls @ 1,000 mls/hr IV BOLUS ONE Stop: 10/30/24 16:02 Last Infusion: 10/30/24 16:21 Dose: Infused Documented By: Admin: 10/30/24 15:09 Dose: 1,000 mls/hr Documented By: NICHOLAS Vital Signs Vital signs: Vital Signs - 8 hr 10/30/24 14:32 10/30/24 14:32 10/30/24 14:34 Temperature 97.8 F Pulse Rate 72 76 Respiratory Rate 20 16 Blood Pressure 135/84 135/84 Pulse Oximetry 99 100 Oxygen Delivery Method Room Air 10/30/24 14:43 10/30/24 14:43 10/30/24 15:00 Temperature Pulse Rate 77 74 Respiratory Rate Blood Pressure 124/91 H Pulse Oximetry 100 100 Oxygen Delivery Method 10/30/24 15:00 10/30/24 15:08 10/30/24 15:08 Temperature Pulse Rate 64 Respiratory Rate 16 Blood Pressure 120/87 125/84 Pulse Oximetry 100 Oxygen Delivery Method 10/30/24 15:30 10/30/24 15:32 10/30/24 15:32 Temperature Pulse Rate 79 67 Respiratory Rate Blood Pressure 125/78 Pulse Oximetry 100 100 Oxygen Delivery Method 10/30/24 16:00 10/30/24 16:00 10/30/24 16:30 Temperature Pulse Rate 76 84 Respiratory Rate 16 Blood Pressure 115/74 Pulse Oximetry 100 100 Oxygen Delivery Method 10/30/24 16:30 10/30/24 17:00 10/30/24 17:08 Temperature Pulse Rate 85 Respiratory Rate 16 Blood Pressure 135/84 123/77 Pulse Oximetry 100 Oxygen Delivery Method 10/30/24 17:08 10/30/24 17:30 10/30/24 17:30 Temperature Pulse Rate 86 88 Respiratory Rate 16 16 Blood Pressure 118/75 Pulse Oximetry 100 96 Oxygen Delivery Method 10/30/24 19:00 10/30/24 19:00 Temperature Pulse Rate 74 Respiratory Rate 16 Blood Pressure 112/76 Pulse Oximetry 98 Oxygen Delivery Method <Carolina Delarosa, DO - Last Filed: 10/31/24 07:38> Orders Ordered: Discontinued Medications Sodium Chloride (Normal Saline 0.9%) 1,000 mls @ 1,000 mls/hr IV BOLUS ONE Stop: 10/30/24 16:02 Last Infusion: 10/30/24 16:21 Dose: Infused Documented By: Admin: 10/30/24 15:09 Dose: 1,000 mls/hr Documented By: NICHOLAS Vital Signs Vital signs: Vital Signs - 8 hr 10/30/24 14:32 10/30/24 14:32 10/30/24 14:34 Temperature 97.8 F Pulse Rate 72 76 Respiratory Rate 20 16 Blood Pressure 135/84 135/84 Pulse Oximetry 99 100 Oxygen Delivery Method Room Air 10/30/24 14:43 10/30/24 14:43 10/30/24 15:00 Temperature Pulse Rate 77 74 Respiratory Rate Blood Pressure 124/91 H Pulse Oximetry 100 100 Oxygen Delivery Method 10/30/24 15:00 10/30/24 15:08 10/30/24 15:08 Temperature Pulse Rate 64 Respiratory Rate 16 Blood Pressure 120/87 125/84 Pulse Oximetry 100 Oxygen Delivery Method 10/30/24 15:30 10/30/24 15:32 10/30/24 15:32 Temperature Pulse Rate 79 67 Respiratory Rate Blood Pressure 125/78 Pulse Oximetry 100 100 Oxygen Delivery Method 10/30/24 16:00 10/30/24 16:00 10/30/24 16:30 Temperature Pulse Rate 76 84 Respiratory Rate 16 Blood Pressure 115/74 Pulse Oximetry 100 100 Oxygen Delivery Method 10/30/24 16:30 10/30/24 17:00 10/30/24 17:08 Temperature Pulse Rate 85 Respiratory Rate 16 Blood Pressure 135/84 123/77 Pulse Oximetry 100 Oxygen Delivery Method 10/30/24 17:08 10/30/24 17:30 10/30/24 17:30 Temperature Pulse Rate 86 88 Respiratory Rate 16 16 Blood Pressure 118/75 Pulse Oximetry 100 96 Oxygen Delivery Method 10/30/24 19:00 10/30/24 19:00 Temperature Pulse Rate 74 Respiratory Rate 16 Blood Pressure 112/76 Pulse Oximetry 98 Oxygen Delivery Method MDM - Abdominal Pain <Maryjane Jason PA-C - Last Filed: 10/30/24 19:34> Differential Diagnosis Differential diagnosis: Likely abdominal pain, constipation, diverticulitis, endometriosis and other (ovarian cyst, mild hydronephrosis) Medical Records Attestation: I reviewed the patient's medical records. Lab Data Attestation: I reviewed the patient's lab results. 10/30/24 14:40 10/30/24 14:40 Labs: Lab Results 10/30/24 Range/Units 14:40 WBC 7.3 (4.5-11.0) X10^3/uL RBC 4.62 (4.0-5.2) X10^6/uL Hgb 14.3 (12.0-16.0) g/dL Hct 41.8 (36-46) % MCV 90.5 (80-100) fL MCH 31.0 (26-34) PG MCHC 34.2 (30-36) % RDW 12.7 (11.6-14.8) % Plt Count 214 (150-400) X10^3/uL Neut % (Auto) 58.1 (50-75) % Lymph % (Auto) 32.6 (25-40) % Maury % (Auto) 5.6 (3-14) % Eos % (Auto) 3.1 (2-4) % Baso % (Auto) 0.6 (0-2) % Neut # (Auto) 4200 (7900-6340) /uL Lymph # (Auto) 2400 (9916-3151) /uL Maury # (Auto) 400 (0-900) /uL Eos # (Auto) 200 (0-450) /uL Baso # (Auto) 0 (0-100) /uL Sodium 137 (137-145) mmol/L Potassium 4.0 (3.4-5.1) mmol/L Chloride 103 (98-107) mmol/L Carbon Dioxide 25 (22-32) mmol/L BUN 18 H (7-17) mg/dL Creatinine 0.67 (0.52-1.04) mg/dL Estimated GFR > 60 (>60) mL/min BUN/Creatinine Ratio 26.9 H (6-22) Glucose 82 (70-99) mg/dL Calcium 9.3 (8.4-10.2) mg/dL Total Bilirubin 0.4 (0.2-1.3) mg/dL AST 34 (14-36) IU/L ALT 26 (<35) IU/L Alkaline Phosphatase 138 H (38-126) U/L C-Reactive Protein < 0.5 (<1.0) mg/dL Total Protein 7.9 (6.3-8.2) g/dL Albumin 4.9 (3.5-5.0) g/dL Globulin 3.0 (1.7-4.1) g/dL Albumin/Globulin Ratio 1.6 (1.0-2.8) Lipase 266 (23-300) U/L Point of care testing: Point of Care Testing Test Results Negative Urine Dip Bedside Urine Glucose Negative Bedside Urine Bilirubin - Negative Bedside Urine Ketone - Negative Urine Specific [place] 1.000 Bedside Urine Occult Blood - Negative Bedside Urine pH 6.0 Bedside Urine Protein - Negative Bedside Urine Urobilinogen - Negative Bedside Urine Nitrite - Negative Bedside Urine Leukocytes - Negative Esterase Imaging Data Abdominal x-ray: My Impression: Agree with Radiology interpretation Radiologist's Impression: [address] [address] XRay Report Signed Patient: Darby Bhat MR#: [id number] : 1990 Acct:[id number] Age/Sex: 34 / F Date of Service: 10/30/24 Loc: ED Accession Number: [id number] Procedure: XR abdomen min 2V Ordering Provider: Maryjane Jason PA-C PROCEDURE: XR ABDOMEN MIN 2V INDICATIONS: acute on chronic RLQ pn + constipation TECHNIQUE: 2 views of the abdomen were acquired. COMPARISON: [facility], CT, CT ABDOMEN PELVIS W CON, 02/11/2024, 15:37. FINDINGS: Surgical changes and devices: None. Bowel: No pneumoperitoneum. The bowel gas pattern is normal. A yjks-if-kjcjuhje volume of stool can be seen within the colon. Soft tissues: No masses; visualized solid organ contours appear normal in size. No suspicious abdominal calcifications. Bones: No suspicious bony abnormalities. IMPRESSION: There is a frkm-kx-fjlfkecq volume of stool seen within the colon, which is consistent with the given clinical history of constipation. Dictated by: Lior Stephenson M.D. on 10/30/2024 at 14:41 Approved by: Lior Stephenson M.D. on 10/30/2024 at 14:42 CT scan - abdomen/pelvis: My Impression: agree with radiology interpretation Radiologist's Impression: [address] [address] [address] Scan Report Signed Patient: Darby Bhat MR#: [id number] : 1990 Acct:[id number] Age/Sex: 34 / F Date of Service: 10/30/24 Loc: ED Accession Number: [id number] Procedure: CT abdomen pelvis w con Ordering Provider: Maryjane Jason PA-C PROCEDURE: CT ABDOMEN PELVIS W CON INDICATIONS: RLQ abd pain at mcburney's point TECHNIQUE: After the administration of intravenous contrast, axial sections acquired from the lung bases to the pubic symphysis. Coronal and sagittal reformats were performed. For radiation dose reduction, the following was used: automated exposure control, adjustment of mA and/or kV according to patient size. COMPARISON: [facility], CT, CT ABDOMEN PELVIS W CON, 06/06/2022, 1:20. [facility], CT, CT ABDOMEN PELVIS W CON, 05/24/2022, 18:39. [facility], US, US PELVIC COMPLETE, 04/28/2024, 12:15. [facility], CT, CT ABDOMEN PELVIS W CON, 02/11/2024, 15:37. FINDINGS: Image quality: Diagnostic. Lower Chest: No significant findings. ABDOMEN: Liver: No solid mass. Gallbladder: No radiopaque gallstones or wall thickening. Biliary ducts: No biliary dilation. Pancreas: No ductal dilation. Spleen: Size is within normal limits. Adrenal Glands: No adrenal nodules. Kidneys and Ureters: There is mild right-sided hydronephrosis. No definite associated hydroureter is seen. No cause of obstruction is seen. No solid mass. No complex renal cystic lesion which requires follow up. Stomach and Bowel: Normal colonic caliber, without significant wall thickening. The previously seen duodenal thickening is no longer definitely seen. No dilated loops of small bowel are seen. No appendix (either normal or abnormal) is identified on this study. (The patient gives a history of prior appendectomy). Peritoneum: No abnormal intraperitoneal fluid. No free air. Ventral Wall: No significant ventral hernia. Abdominal Nodes: No retroperitoneal or mesenteric adenopathy by size criteria. Vessels: Aorta and inferior vena cava are normal in size. PELVIS: Pelvic Organs: Bilateral ovarian cysts are seen, which are likely physiologic. Bladder: No bladder wall thickening, accounting for underdistention. Pelvic Nodes: No enlarged lymph nodes. Miscellaneous: No inguinal hernias are seen. Bones: No aggressive osseous abnormality. IMPRESSION: No appendix (either normal or abnormal) is identified on this study. There is mild right-sided hydronephrosis. A cause of obstruction is not seen. Bilateral ovarian cysts are seen, likely physiologic. If there is strong clinical concern for a pelvic abnormality this patient, please consider a follow-up pelvic ultrasound for further evaluation. Dictated by: Lior Stephenson M.D. on 10/30/2024 at 16:16 Approved by: Lior Stephenson M.D. on 10/30/2024 at 16:21 [facility] Narrative Medical decision making narrative: This is a 34-year-old female with complex history of chronic abdominal pain, previous appendectomy, endometriosis diagnosis in May after exploratory laparotomy. Presenting today with concern for acute worsening of her chronic abdominal pain in the same location as her chronic pain. Symptoms worse earlier this week but more severe last night which brought her in today. Baseline 4/10 pain and 10/10 pain last night per patient now 5/10. Patient declined any pain medication stating she prefers not to take this at all unless absolutely needed (for her endometriosis/menstrual cramp pain only). She was given a fluid bolus, her exam was fairly benign with mild lower right quadrant abdominal pain tenderness over McBurney's point. She had concern for constipation and stool change and x-ray obtained does show moderate constipation/stool burden. Labs were obtained including CRP which was not elevated. Her other labs were also unremarkable. Negative and no evidence of UTI. We had an extensive discussion about additional imaging and risks related to radiation as she has already had [address] scans and she is 34 years old. Ultimately she had strong preference to pursue CT for further evaluation and was aware that it may not yield any specific new information. CT abdomen pelvis with contrast obtained. It did show bilateral ovarian cyst likely physiologic. Also mild hydronephrosis, this does not correlate with the patient's pain or symptoms and I suspect that this could be due to the fluid bolus she received just prior to imaging. Though she was counseled to monitor carefully for urinary symptoms or new flank pain or changing abdominal pain. Otherwise CT scan did not reveal any cause for her worsening pain. She is advised to consider adding MiraLax to her regimen she is already on a high-fiber diet and is working with a dietitian as well as a 411 directory assistance operator. Certainly possible that her pain is related to her previous appendectomy, such as an adhesion versus endometriosis pain. She is not on oral contraceptives for endometriosis control as she declined this last winter after her diagnosis. She was advised to follow up closely with her PCP, monitor for new or worsening symptoms and seek re-evaluation if these develop. Return precautions provided, follow-up plan discussed, all questions answered. <Carolina Delarosa, DO - Last Filed: 10/31/24 07:38> Lab Data Labs: Lab Results 10/30/24 Range/Units 14:40 WBC 7.3 (4.5-11.0) X10^3/uL RBC 4.62 (4.0-5.2) X10^6/uL Hgb 14.3 (12.0-16.0) g/dL Hct 41.8 (36-46) % MCV 90.5 (80-100) fL MCH 31.0 (26-34) PG MCHC 34.2 (30-36) % RDW 12.7 (11.6-14.8) % Plt Count 214 (150-400) X10^3/uL Neut % (Auto) 58.1 (50-75) % Lymph % (Auto) 32.6 (25-40) % Maury % (Auto) 5.6 (3-14) % Eos % (Auto) 3.1 (2-4) % Baso % (Auto) 0.6 (0-2) % Neut # (Auto) 4200 (0865-7725) /uL Lymph # (Auto) 2400 (4456-8718) /uL Maury # (Auto) 400 (0-900) /uL Eos # (Auto) 200 (0-450) /uL Baso # (Auto) 0 (0-100) /uL Sodium 137 (137-145) mmol/L Potassium 4.0 (3.4-5.1) mmol/L Chloride 103 (98-107) mmol/L Carbon Dioxide 25 (22-32) mmol/L BUN 18 H (7-17) mg/dL Creatinine 0.67 (0.52-1.04) mg/dL Estimated GFR > 60 (>60) mL/min BUN/Creatinine Ratio 26.9 H (6-22) Glucose 82 (70-99) mg/dL Calcium 9.3 (8.4-10.2) mg/dL Total Bilirubin 0.4 (0.2-1.3) mg/dL AST 34 (14-36) IU/L ALT 26 (<35) IU/L Alkaline Phosphatase 138 H (38-126) U/L C-Reactive Protein < 0.5 (<1.0) mg/dL Total Protein 7.9 (6.3-8.2) g/dL Albumin 4.9 (3.5-5.0) g/dL Globulin 3.0 (1.7-4.1) g/dL Albumin/Globulin Ratio 1.6 (1.0-2.8) Lipase 266 (23-300) U/L Point of care testing: Point of Care Testing Test Results Negative Urine Dip Bedside Urine Glucose Negative Bedside Urine Bilirubin - Negative Bedside Urine Ketone - Negative Urine Specific [place] 1.000 Bedside Urine Occult Blood - Negative Bedside Urine pH 6.0 Bedside Urine Protein - Negative Bedside Urine Urobilinogen - Negative Bedside Urine Nitrite - Negative Bedside Urine Leukocytes - Negative Esterase Discharge Plan Departure Patient Disposition: Home Clinical Impression: Abdominal pain, RLQ, Acute exacerbation of chronic abdominal pain Constipation Qualifiers: Constipation type: unspecified constipation type Qualified Code(s): K59.00 - Constipation, unspecified Activity Restrictions/Additional Instructions: *You have been diagnosed with [right lower quadrant abdominal pain, acute on chronic abdominal pain/constipation] *What to do: *Please continue to take your regular medications as directed. [ ] New medication prescriptions sent to your pharmacy: [ ] [ ] New medication written as a paper prescription [ X] No new medications given *Please follow up with your primary care provider in 2-3 days, call for an appointment. Let them know you were seen in the Emergency Department and that we ask that you be seen in follow up. We will electronically transmit a record of today's note if your PCP is in our system. Your labs today all looked good. We did do an x-ray initially that showed you do have some moderate stool burden present which is consistent with some constipation which you have been feeling recently. you came in today with concern for right lower quadrant abdominal pain that was worse than baseline. We did check inflammatory marker which was not elevated. And after extensive discussion regarding radiation risk and benefits/risks of a CT scan today ultimately did proceed with CT scan for further evaluation as to the cause of your pain worsening. You do have ovarian cysts present bilaterally that are likely physiologic per the radiologist. They did also note some very mild hydronephrosis on the right side which is a small amount of fluid around your kidney. This also does not fit with the location of the pain you are having so I think it is unlikely to be the cause of your pain. It this hydronephrosis that was seen on the imaging could be related to the fluid bolus he received through her IV shortly before he received the CT scan. That being said if your pain changes or worsens or you are having urinary symptoms or new or worsening symptoms over the next few days please make sure you seek re-evaluation. There was no evidence of a UTI on your labs today. I hope that you feel better soon. Encourage you to add MiraLax to your dietary regimen and continue pushing fluids as you do. Follow up with your primary care team early next week. I did provide a work note for you for Friday and Friday if needed. *If you do not have a primary care provider please contact the [facility] Resource line at [phone]. They will ask some questions about your medical history and help get you set up with a doctor in the community. *Return to Emergency Department if you should have any new, worsening or concerning symptoms, such as [fever greater than 101 F, shaking chills, worsening pain, persistent vomiting or other bothersome symptoms] Prescriptions: No Action norethindrone ac-eth estradiol 1.5-30 mg-mcg tablet 1 tab PO DAILY Qty: 63 3RF albuterol sulfate 90 mcg/actuation HFA aerosol inhaler 2 puff inhalation Q4-6H PRN (Reason: shortness of breath or wheezing) Qty: 8.5 3RF Rx Instructions: Ok to pre-medicate prior to vigorous activity Referrals: Keya Sanford MD [Primary Care Provider] - Stand Alone Forms: Patient Portal/API/Survey, Work Release Note ED Sign-out <Carolina Delarosa DO - Last Filed: 10/31/24 07:38> Cosign ED Attending Brittney Attestation: I was immediately available in the department for consultation.
[2024-10-30] MEDS: SODIUM CHLORIDE 0.9% 1,000 ML 1000 ML IV (15:09)
[2024-10-30 15:27] LABS: C-Reactive Protein Quant < 0.5 mg/dL (<1.0)
--- NOTE | 2024-10-30 16:37 | DI.CT.S_ITS ---
PROCEDURE: CT ABDOMEN PELVIS W CON INDICATIONS: RLQ abd pain at mcburney's point TECHNIQUE: After the administration of intravenous contrast, axial sections acquired from the lung bases to the pubic symphysis. Coronal and sagittal reformats were performed. For radiation dose reduction, the following was used: automated exposure control, adjustment of mA and/or kV according to patient size. COMPARISON: [facility], CT, CT ABDOMEN PELVIS W CON, 06/06/2022, 1:20. [facility], CT, CT ABDOMEN PELVIS W CON, 05/24/2022, 18:39. [facility], US, US PELVIC COMPLETE, 04/28/2024, 12:15. [facility], CT, CT ABDOMEN PELVIS W CON, 02/11/2024, 15:37. FINDINGS: Image quality: Diagnostic. Lower Chest: No significant findings. ABDOMEN: Liver: No solid mass. Gallbladder: No radiopaque gallstones or wall thickening. Biliary ducts: No biliary dilation. Pancreas: No ductal dilation. Spleen: Size is within normal limits. Adrenal Glands: No adrenal nodules. Kidneys and Ureters: There is mild right-sided hydronephrosis. No definite associated hydroureter is seen. No cause of obstruction is seen. No solid mass. No complex renal cystic lesion which requires follow up. Stomach and Bowel: Normal colonic caliber, without significant wall thickening. The previously seen duodenal thickening is no longer definitely seen. No dilated loops of small bowel are seen. No appendix (either normal or abnormal) is identified on this study. (The patient gives a history of prior appendectomy). Peritoneum: No abnormal intraperitoneal fluid. No free air. Ventral Wall: No significant ventral hernia. Abdominal Nodes: No retroperitoneal or mesenteric adenopathy by size criteria. Vessels: Aorta and inferior vena cava are normal in size. PELVIS: Pelvic Organs: Bilateral ovarian cysts are seen, which are likely physiologic. Bladder: No bladder wall thickening, accounting for underdistention. Pelvic Nodes: No enlarged lymph nodes. Miscellaneous: No inguinal hernias are seen. Bones: No aggressive osseous abnormality. IMPRESSION: No appendix (either normal or abnormal) is identified on this study. There is mild right-sided hydronephrosis. A cause of obstruction is not seen. Bilateral ovarian cysts are seen, likely physiologic. If there is strong clinical concern for a pelvic abnormality this patient, please consider a follow-up pelvic ultrasound for further evaluation. Dictated by: Lior Stephenson M.D. on 10/30/2024 at 16:16 Approved by: Lior Stephenson M.D. on 10/30/2024 at 16:21
== END 2024-10-30 19:05 | disposition home or self-care (01) ==
PROVIDERS: Emergency Provider Student in an Organized Health Care Education/Training Program; PCP Student in an Organized Health Care Education/Training Program
DX: R10.31 Right lower quadrant pain (principal); K59.00 Constipation, unspecified
CPT/HCPCS: 36415; 74019; 74177; 80053; 81003; 81025; 83690; 85025; 86140; 96360; 99284; Q9967